=== PATIENT | female | born 1965 | race Caucasian/White ===

== ENCOUNTER 2019-04-02 07:32 | Outpatient (CLI) | payer OTHER, SELFPAY ==
--- NOTE | 2019-04-02 07:50 | ECHO_ITS ---
Patient Info Name: Genna Rodriguez Age: 53 years : 1965 Gender: Female Ht: 62 in Wt: 173 lbs BSA: 1.88 m2 HR: 65 bpm BP: 149 / 83 mmHg Heart Rhythm: Sinus Rhythm Technical Quality: Good Exam Date: 04/02/2019 8:10 AM Exam Location: [facility] Patient Status: Outpatient Admit Date: 04/02/2019 Staff Ordering Physician: Katherin Dempsey NP Wincher: Itzel Martin RDCS Attending Provider: Katherin Dempsey NP Referring Physician: Roselyn KILGORE; Exam Type: CA echo doppler color flow Study Info Indications R55 - Syncope and collapse Complete two-dimensional, color flow and Doppler transthoracic echocardiogram is performed. Summary 1. Left ventricular systolic function is normal, estimated at 60-65%. 2. Trivial jets of mitral tricuspid and pulmonic insufficiency. All appear to be within physiologic normal limits. Left Ventricle Left ventricular chamber dimension is normal. Left ventricular systolic function is normal, estimated at 60-65%. The left ventricular diastolic function is normal. Right Ventricle Right ventricular chamber dimension is normal. Left Atria Left atrial chamber dimension is normal. Right Atria Right atrial chamber dimension is normal. Aortic Valve The aortic valve is trileaflet. Pulmonic Valve The pulmonic valve is normal. There is trace pulmonic regurgitation. Mitral Valve The mitral valve has normal leaflets. There is trace mitral valve regurgitation. Tricuspid Valve The tricuspid valve leaflets are normal. There is trace tricuspid valve regurgitation. Pericardium/Pleural The pericardium appears normal. Aorta The aortic root size at the sinus of Valsalva is normal. Left Ventricular Outflow Tract Name Value Normal LVOT 2D LVOT Diameter 2.0 cm LVOT Doppler LVOT Peak Gradient 5 mmHg LVOT Mean Gradient 3 mmHg LVOT VTI 26 cm LVOT VTI/AV VTI Ratio 1.0 LVOT Stroke Volume 82 ml LVOT CO 5.3 l/min LVOT CI 2.8 l/min/m2 Pulmonic Valve Name Value Normal RVOT Doppler RVOT Peak Gradient 2 mmHg PV Doppler PV Peak Gradient 4 mmHg Mitral Valve Name Value Normal MV Doppler MV Decel [place] 303 cm/s2 MV PHT 64 ms MV Area (PHT) 3
== END 2019-04-02 07:33 | disposition home or self-care (01) ==
PROVIDERS: PCP Family Medicine; Visit Provider Nurse Practitioner Family
DX: R55 Syncope and collapse (principal)
CPT/HCPCS: 93306

== ENCOUNTER 2019-04-28 00:19 | Day surgery (SDC) | payer OTHER, SELFPAY ==
[2019-04-23 13:59] VITALS: BMI 30.2
[2019-04-28] MEDS: LACTATED RINGERS 1,000 ML 150 ML IV CONT (09:08)
--- NOTE | 2019-04-28 09:08 | WPDANESEPPF ---
Anes - Initial Pre Proc Eval Procedure: Operation Date: 04/28/19 09:45 Proposed Procedures p Screening Colonoscopy - Gilmar Forde MD Date/Time: 04/28/19 09:08 Surgeon: Gilmar Forde MD Pre Op Diagnosis: Neoplasm Screening Patient Data Age: 53 Gender: F Height: 5 ft 2 in Weight: 75 kg Allergies Allergy/AdvReac Type Severity Reaction Status Date / Time NKDA Allergy Mild Unknown Uncoded 04/28/19 08:59 Home Medications Medication Instructions Recorded Confirmed Type triamcinolone acetonide 0.5 % 1 applic TOPICAL BID PRN #15 gm 04/26/19 Rx topical cream Patient hx anesthesia problems: none Family hx anesthesia problems: none PMFSH Past Medical History Medical History Bunion Elevated BP without diagnosis of hypertension Encounter for screening for malignant neoplasm of colon Fibroid uterus Shingles (~2013) left face, no ocular involvement Urinary incontinence Uterine fibroid Vaginal delivery (vaginal after ) Surgical History Surgical History H/O section (~1996) History of tubal ligation (~1998) Hx of breast reduction, elective (~2004) S/P breast lumpectomy [place] teeth removed Family History Family History Sibling Diabetes mellitus Cervical cancer Mother Thyroid cancer Social History Social History Smoking status: Never smoker Alcohol intake: current Substance use: never Gender identity (if verbalized by the patient): Female Anes - Eval Final PreProcedure Day of Procedure 04/28/19 09:08 Patient weight: obese Heart: regular rate and rhythm Lungs: clear to auscultation Airway: Mallampati scale class II Neurological: alert and oriented Last oral intake: >/= 8 hours ASA classification: II Emergent: no Anesthetic plan: proceed Anesthesia type and monitoring: general GIVS and standard monitoring Informed Consent: The patient's anesthetic plan and its attendant risks and benefits were discussed with the patient/family/POA. Questions were solicited and answers provided to the satisfaction of the patient/family/POA.
[2019-04-28 09:16] VITALS: BP 139/90; PULSE 91; RESP 18; TEMP 36.9; O2SAT 97; BMI 31.5
--- NOTE | 2019-04-28 09:27 | PM.HPGS ---
History of Present Illness History of Present Illness Consent: Risks, benefits, and alternatives have been discussed and questions answered. Patient agrees to proceed with procedure. Chief complaint: Neoplasm Screening Narrative: Genna Rodriguez is a 53 year old female here for her first colonoscopy Review of Systems Constitutional: Constitutional: Denies headache(s) and Denies weakness Eyes: Eyes: Denies blurry vision ENT: Reports Normal hearing present, Denies headache(s) and Denies neck pain Cardiovascular: Cardiovascular: Denies chest pain and Denies dyspnea Respiratory: Respiratory: Denies dyspnea Gastrointestinal: Gastrointestinal: Reports no additional gastrointestinal complaints Genitourinary: Genitourinary: Denies dysuria Musculoskeletal: Musculoskeletal: Denies neck pain Integumentary/Breasts: Skin/Breast: Denies dry skin Neurologic: Reports Normal hearing present, Denies headache(s) and Denies weakness Psychiatric: Psychiatric: Denies anxiety Endocrine: Endocrine: Denies change in body appearance Hematologic/Lymphatic: Hematologic/Lymphatic: Denies easy bleeding Allergic/Immunologic: Allergic/Immunologic: Denies urticaria PMFSH Past Medical History Medical History Bunion Elevated BP without diagnosis of hypertension Encounter for screening for malignant neoplasm of colon Fibroid uterus Shingles (~2013) left face, no ocular involvement Urinary incontinence Uterine fibroid Vaginal delivery (vaginal after ) Surgical History Surgical History H/O section (~1996) History of tubal ligation (~1998) Hx of breast reduction, elective (~2004) S/P breast lumpectomy [place] teeth removed Family History Family History Sibling Diabetes mellitus Cervical cancer Mother Thyroid cancer Social History Social History Smoking status: Never smoker Alcohol intake: current Substance use: never Gender identity (if verbalized by the patient): Female Meds Home Medications and Allergies Home Medications Medication Instructions Recorded Confirmed Type triamcinolone acetonide 0.5 % 1 applic TOPICAL BID PRN #15 gm 04/26/19 Rx topical cream Allergies Allergy/AdvReac Type Severity Reaction Status Date / Time NKDA Allergy Mild Unknown Uncoded 04/28/19 08:59 Vital Signs Vital Signs - 24 hr 04/28/19 09:16 Temperature 98.4 F Pulse Rate 91 Respiratory Rate 18 Blood Pressure 139/90 Pulse Oximetry 97 Exam Const: General: comfortable and no acute distress HENMT: General nose exam: Normal nares present Eyes: General: appearance normal, both eyes and all related structures Neck: Neck: no JVD Resp: Auscultation: clear to auscultation bilaterally Cardio: Rate: regular rate Rhythm: regular rhythm GI: Inspection: non-distended GI Palp: Yes Soft to palpation Skin: General skin exam: normal color Neuro: General: gait normal Speech: normal speech Extrem: General: normal to inspection Psych: Mental Status: mental status grossly normal Assessment and Plan Assessment and plan (1) Colon cancer screening: Code(s): Z12.11 - Encounter for screening for malignant neoplasm of colon Status: Acute Assessment and Plan: will proceed with colonoscopy
[2019-04-28 09:47] VITALS: BP 127/84; PULSE 76; RESP 18; O2SAT 98
[2019-04-28 09:57] VITALS: BP 129/73; PULSE 86; RESP 18; O2SAT 98
[2019-04-28 10:07] VITALS: BP 137/92; PULSE 78; RESP 18; O2SAT 98
== END 2019-04-28 10:28 | disposition home or self-care (01) ==
PROVIDERS: PCP Family Medicine; Visit Provider Internal Medicine Gastroenterology
PROC: 0DJD8ZZ Inspection of Lower Intestinal Tract, Via Natural or Artificial Opening Endoscopic (ICD-10-PCS; CPT 45378; principal; 2019-04-28 09:45)
DX: Z12.11 Encounter for screening for malignant neoplasm of colon (principal); D12.0 Benign neoplasm of cecum; D12.2 Benign neoplasm of ascending colon; K57.30 Diverticulosis of large intestine without perforation or abscess without bleeding; K64.8 Other hemorrhoids; E66.9 Obesity, unspecified; Z68.31 Body mass index [BMI] 31.0-31.9, adult
CPT/HCPCS: 45385; 88305; J2704; J7120

== ENCOUNTER → 2020-05-01 17:08 | Outpatient (CLI) | payer OTHER, SELFPAY ==
--- NOTE | ~2020-05-01 | MM_ITS ---
EXAMINATION: MM screening marilia BI w [place]lin HISTORY: Screening TECHNIQUE: Craniocaudal and mediolateral oblique 3-D tomosynthesis images were obtained and synthetic 2-D images were generated. CAD analysis was submitted and interpreted. COMPARISON: Comparison to multiple prior studies sequentially, with oldest reviewed study dated 03/21. BREAST PARENCHYMAL COMPOSITION: There are scattered areas of fibroglandular density. FINDINGS: There is a focal asymmetry in the upper central aspect of the right breast, middle third. T his asymmetry contains new clustered calcifications which are indeterminate. Additional bilateral nehemias ast asymmetries are stable. IMPRESSION: 1. Focal right breast asymmetry, upper central right breast middle third, with associated indetermina te calcifications, new since prior study. 2. Additional mammographic views and possible breast ultrasound are recommended. BI-RADS Category 0: Incomplete: Needs additional imaging evaluation. Reviewed, dictated and finalized at location A. E TOOLSETTER IMPRESSION: 1. Focal right breast asymmetry, upper central right breast middle third, with associated indeterminate calcifications, new since prior study. 2. Additional mammographic views and possible breast ultrasound are recommended . BI-RADS Category 0: Incomplete: Needs additional imaging evaluation.
== END ==
PROVIDERS: Visit Provider Obstetrics & Gynecology
DX: Z12.31 Encounter for screening mammogram for malignant neoplasm of breast (principal); R92.8 Other abnormal and inconclusive findings on diagnostic imaging of breast
CPT/HCPCS: 77063; 77067

== ENCOUNTER 2020-07-19 08:16 | Outpatient (CLI) | payer OTHER, SELFPAY ==
--- NOTE | ~2020-07-19 | MMUS_ITS ---
EXAMINATION: MM diagnostic marilia RT w [place]lin, US breast RT limited HISTORY: Follow-up right breast asymmetry TECHNIQUE: Additional 3-D tomosynthesis images of the right breast were performed and synthetic 2-D i mages were generated. CAD analysis was submitted and interpreted. High resolution Limited right breas t ultrasound was performed. COMPARISON: Comparison to multiple prior studies sequentially, with oldest reviewed study dated 03/19. BREAST PARENCHYMAL COMPOSITION: Breast composed of scattered areas of fibroglandular density. FINDINGS: MAMMOGRAPHIC FINDINGS: There is an irregular shaped mass in the upper outer quadrant of the right breast, middle third. Ther e are associated indeterminate calcifications. This mass measures approximately 1 cm maximum dimensio n. ULTRASOUND: Limited right breast ultrasound: At 11:00, 4 cm from the nipple there is an irregular shaped hypoecho ic mass with posterior shadowing measuring 12 mm maximum dimension. This corresponds to the mass iden tified on mammography. No internal vascularity. There are additional small benign cysts of the right breast. There is a small cluster of cysts in the right breast at 9:00, 9 cm from the nipple measuring 7 mm maximum dimension. IMPRESSION: 1. Irregular shaped hypoechoic mass of the right breast at 11:00, 4 cm from the nipple measuring 12 m m maximum dimension. 2. Ultrasound-guided right breast biopsy recommended. BI-RADS category 5, highly suggestive of malignancy. Reviewed, dictated and finalized at location A. IMPRESSION: 1. Irregular shaped hypoechoic mass of the right breast at 11:00, 4 cm from the nipple measuring 12 mm maximum dimension. 2. Ultrasound-guided right breast biopsy recommended. BI-RADS category 5, highly suggestive of malignancy.
== END 2020-07-19 08:17 ==
PROVIDERS: PCP Nurse Practitioner Family; Visit Provider Obstetrics & Gynecology
DX: N60.01 Solitary cyst of right breast (principal)
CPT/HCPCS: 76642; 77061; 77065; G0279

== ENCOUNTER 2021-07-27 14:55 | Outpatient (CLI) | payer BC, OTHER, SELFPAY ==
--- NOTE | ~2021-07-27 | US_ITS ---
EXAMINATION: US pelvic complete w TV DATE: 07/27/2021 16:07 INDICATION: History of uterine fibroids. Breast cancer. Comparison:Ultrasound dated 03/19/2019 TECHNIQUE: Multiple transabdominal and endovaginal sonographic images of the pelvis performed. FINDINGS: The uterus measures 12.4 x 5.5 x 7.5 cm. The endometrial complex measures 2 mm. There is an anterior fibroid measuring 9.9 x 8.3 x 5.9 cm. There is a nabothian cyst measuring 9 mm. The right ovary measures 1.4 x 1.1 x 1 cm and the left ovary is not visualized. There is no free fluid in the pelvis. There are no abnormal masses seen on either side. IMPRESSION: 1. Enlarged uterus containing a large anterior fibroid measuring 9.9 x 8.3 x 5.9 cm. Reviewed, dictated and finalized at location A. IMPRESSION: 1. Enlarged uterus containing a large anterior fibroid measuring 9.9 x 8.3 x 5. 9 cm.
== END 2021-07-27 14:56 | disposition home or self-care (01) ==
LOC: ANHIMG 15:02
PROVIDERS: PCP Nurse Practitioner Family; Visit Provider Obstetrics & Gynecology
DX: Z86.018 Personal history of other benign neoplasm (principal); D25.9 Leiomyoma of uterus, unspecified
CPT/HCPCS: 76830; 76856

== ENCOUNTER 2021-10-26 10:10 | Outpatient (CLI) | payer BC, OTHER, SELFPAY | END 2021-10-26 10:11 | disposition home or self-care (01) | LOC: ANHSURGERY 10:16 | PROVIDERS: PCP Nurse Practitioner Family; Visit Provider Obstetrics & Gynecology | DX: D25.9 Leiomyoma of uterus, unspecified (principal) | CPT/HCPCS: 36415; 86850; 86900; 86901 ==

== ENCOUNTER 2021-10-31 12:32 | Inpatient (IN) | payer BC, OTHER, SELFPAY ==
[2021-10-23 09:46] VITALS: BMI 33.6
--- NOTE | 2021-10-23 09:54 | PC.NURSE ---
Report to the Outpatient Waiting Room, entrance under the green pavilion located off [facility], at time _0800_ on date 10/31/21. OR Time: _1000_. - You and your visitor will be asked to self-screen and do not enter if you have any COVID symptoms. - Only one visitor and NO children visitors are allowed at this time. - The patient visitor is requested to leave or wait in car when not with patient due to restrictions. - A mask is required within the hospital. Patients may have clear liquids (water, carbonated beverages, clear teas, apple juice) until 3 hours prior to surgery with a maximum of 20 ounces. - No food from midnight until time of surgery nothing to drink after 0700am - Infants may have breast milk until 4 hours before surgery, infant formula 6 hours prior to surgery. - Children will be allowed to drink immediately following surgery. If applicable, please bring a bottle or sippy cup to assist with drinking. Juice, water, soda, and popsicles are readily available. For infants on formula, please bring formula the day of surgery. Pacifiers are allowed. Take the following medications with a SIP of water the morning of surgery: __n/a Medications to discontinue per physician n/a Date to take last dose Please no make-up, nail czech, hairspray, perfume, deodorant, or body powder the day of surgery. No jewelry (including any body piercings) or valuables the day of surgery, leave them at home. Please take a shower or bath the night before, or the morning of, surgery with an antibacterial soap. Wear comfortable, loose fitting clothing. Children are encouraged to wear pajamas. - Jewelry must be removed prior to entering the operating room. Rings and piercings that are not removed may be cut off. - The hospital will not accept responsibility for valuables. - Please leave all valuables, including medications, at home the day of surgery. If you are going home after surgery, a licensed rental car ferry driver must drive you home. - NO public transportation without another adult. - We recommend that an adult stay with you for 24 hours following discharge. - We also recommend that you do not drive, make important decision, drink alcoholic beverages, or take any drugs that were not prescribed by your health care provider for at least 24 hours after your discharge time. For Pediatric surgeries, we recommend two adults accompany the child home (only one inside the building at this time). Follow any additional instructions given to you from your surgeon. If you or anyone in your household have experienced Covid symptoms in the past week, please notify your surgeon or the nurse liaison at the phone number below for possible testing. Telephone instructions given to __patient and asked if any additional questions and then verbalized understanding. Patient advised to call surgeon office or pre surgery nurse liaison [phone] if any additional questions.
--- NOTE | 2021-10-30 13:22 | PM.IMHP ---
H&P: HPI History of Present Illness Date/Time: 10/30/21 13:22 Chief Complaint: Pelvic pressure from fibroid Narrative: She is a , menopause less than 2 years ago, with a history of known fibroid uterus which was found on ultrasound in . She has pelvic pressure and urgency. The uterus has slightly increased from 2019 to 2021. She had a normal endometrial biopsy in 2019 and 2021. She was diagnosed with breast cancer in 2020, was on Anastrozole. She has bladder urgency and pressure. She denies any bleeding. She desires definitive treatment of the fibroid uterus due to the pressure and discomfort and lower abdominal swelling. Review of Systems Review of Systems: All systems reviewed & are unremarkable except as noted in HPI and below Constitutional: Constitutional: Reports no additional constitutional complaints Eyes: Eyes: Reports no additional eye complaints Cardiovascular: Cardiovascular: Reports no additional cardiovascular complaints Respiratory: Respiratory: Reports no additional respiratory complaints Gastrointestinal: Gastrointestinal: Reports no additional gastrointestinal complaints Genitourinary: Genitourinary: Reports as per HPI Integumentary/Breasts: Skin/Breast: Reports system reviewed and no additional complaints, except as docu Neurologic: Reports system reviewed and no additional complaints, except as documented Psychiatric: Psychiatric: Reports no additional psychiatric complaints Hematologic/Lymphatic: Hematologic/Lymphatic: Reports no additional hematologic/lymphatic complaints PMFSH Past Medical History Medical History Breast cancer Bunion Colon cancer screening Elevated BP without diagnosis of hypertension Encounter for screening for malignant neoplasm of colon Fibroid uterus Shingles (~2013) left face, no ocular involvement Urinary incontinence Uterine fibroid Vaginal delivery (vaginal after ) Surgical History Surgical History H/O section (~1996) History of tubal ligation (~1998) Hx of breast reduction, elective (~2004) S/P breast lumpectomy [place] teeth removed Family History Family History Sibling Diabetes mellitus Cervical cancer Mother Thyroid cancer Social History Social History Smoking status: Never smoker Alcohol intake: current Alcohol use details: occ Substance use: never Substance use type: does not use Living arrangements: with family Gender identity (if verbalized by the patient): Female Meds Home Medications and Allergies Home Medications Medication Instructions Recorded Confirmed Type anastrozole 1 mg tablet 1 mg PO DAILY 03/15/21 10/23/21 History calcium citrate 200 mg (950 mg) 200 mg PO DAILY 03/15/21 10/23/21 History tablet tolterodine 4 mg capsule,extended 4 mg PO DAILY #90 caps 07/18/21 10/23/21 Rx release 24 hr Allergies Allergy/AdvReac Type Severity Reaction Status Date / Time No Known Allergies Allergy Verified 10/01/21 11:58 Exam Const: General: comfortable and no acute distress Orientation/consciousness: oriented to person, oriented to place and oriented to time Eyes: General: appearance normal, both eyes and all related structures Neck: Neck: normal visual inspection Resp: Effort & Inspection: normal respiratory effort Auscultation: clear to auscultation bilaterally Cardio: Rate: regular rate Rhythm: regular rhythm GI: Inspection: normal to inspection GI Palp: No abdominal tenderness and Yes No hepatosplenomegaly present Other: uterus palpable approx 12 weeks : External Female Exam: normal external appearance Speculum Exam - Vagina: normal appearance of the vagina Speculum Exam - Cervix: normal appearance of the cervix Bimanual exam-
[2021-10-31] VITALS (10 sets, daily range): BP systolic 120–140; BP diastolic 73–100; PULSE 58–85; RESP 11–18; TEMP 36.5–37.2; O2SAT 94–100
[2021-10-31] MEDS: LACTATED RINGERS 1,000 ML 30 ML IV CONT ×2 (08:30→12:37)
[2021-10-31] MEDS: ACETAMINOPHEN 500 MG TABLET 1000 MG PO (08:34)
[2021-10-31] MEDS: KETOROLAC 15 MG/ML VIAL (*BKC) IV PUSH (08:35)
--- NOTE | 2021-10-31 09:36 | WPDHPUPDATE1 ---
History and Physical Update Update Date/Time: 10/31/21 09:36 History and Physical has been reviewed, including an updated exam of the patient. There are NO changes in the patient's condition. Risks, benefits, and alternatives have been discussed and questions answered. Patient agrees to proceed with procedure.
--- NOTE | 2021-10-31 09:50 | WPDANESEPPF ---
Anes - Initial Pre Proc Eval Procedure: Operation Date: 10/31/21 10:00 Proposed Procedures p Total Abdominal Hysterectomy with Bilateral Salpingo Oophorectomy - Saurav Rivers MD Date/Time: 10/31/21 09:50 Surgeon: Saurav Rivers MD Pre Op Diagnosis: fibroid uterus Patient Data Age: 56 Gender: F Height: 1.6 m Weight: 86.18 kg Allergies Allergy/AdvReac Type Severity Reaction Status Date / Time No Known Allergies Allergy Verified 10/01/21 11:58 Home Medications Medication Instructions Recorded Confirmed Type anastrozole 1 mg tablet 1 mg PO DAILY 03/15/21 10/23/21 History calcium citrate 200 mg (950 mg) 200 mg PO DAILY 03/15/21 10/23/21 History tablet tolterodine 4 mg capsule,extended 4 mg PO DAILY #90 caps 07/18/21 10/23/21 Rx release 24 hr Patient hx anesthesia problems: post op nausea/vomiting Family hx anesthesia problems: none Results Review: All pre-operative results and documents have been reviewed as part of the pre-operative evaluation. [facility] Past Medical History Medical History Breast cancer Bunion Colon cancer screening Elevated BP without diagnosis of hypertension Encounter for screening for malignant neoplasm of colon Fibroid uterus Shingles (~2013) left face, no ocular involvement Urinary incontinence Uterine fibroid Vaginal delivery (vaginal after ) Surgical History Surgical History H/O section (~1996) History of tubal ligation (~1998) Hx of breast reduction, elective (~2004) S/P breast lumpectomy [place] teeth removed Family History Family History Sibling Diabetes mellitus Cervical cancer Mother Thyroid cancer Social History Social History Smoking status: Never smoker Alcohol intake: current Alcohol use details: occ Substance use: never Substance use type: does not use Living arrangements: with family Gender identity (if verbalized by the patient): Female Anes - Eval Final PreProcedure Day of Procedure 10/31/21 09:50 Patient weight: obese Heart: regular rate and rhythm Lungs: clear to auscultation Airway: Mallampati scale class III Neurological: alert and oriented Last oral intake: >/= 8 hours ASA classification: III Emergent: no Anesthetic plan: proceed Anesthesia type and monitoring: general ETT and standard monitoring Results Review: All pre-operative results and documents have been reviewed as part of the pre-operative evaluation. Informed Consent: The patient's anesthetic plan and its attendant risks and benefits were discussed with the patient/family/POA. Questions were solicited and answers provided to the satisfaction of the patient/family/POA.
[2021-10-31] MEDS: SCOPOLAMINE 1.5 MG PATCH TRANSDERM (10:00)
[2021-10-31] MEDS: ceFAZolin 2 GM/D5W 50 ML 2 GM/50 ML BAG IVPB (10:06)
--- NOTE | 2021-10-31 12:39 | P.OPB_ITS ---
Procedure Note - Brief Procedure Note - Brief Date of procedure: 10/31/21 Pre-op diagnosis: fibroid uterus fibroid uterus Post-op diagnosis: Same Procedure performed: total abdominal hysterectomy and bilateral salpingo-oophorectomy Anesthesia: GETA Surgeon: Saurav Rivers MD Laborer Operator: kody Estimated blood loss (mL): 20 Drains: No Packing: No Pathology: Yes (uterus with cervix right and left fallopian tubes and ovaries) Complications: No immediate complications Condition: Stable Disposition: PACU Findings: large uterus fibroid, atrophic ovaries/tubes
[2021-10-31] MEDS: fentaNYL CITRATE INJ (*CRX) 100 MCG/2 ML VIAL 25 MCG IV PUSH ×4 (13:04→13:30)
[2021-10-31] MEDS: DEXTROSE 5%/0.45% SOD CHL 1,000 ML 125 ML IV CONT (14:32)
[2021-10-31] MEDS: KETOROLAC 30 MG/ML VIAL (*BKC) IV PUSH ×2 (14:32→21:09)
[2021-10-31] MEDS: ANASTROZOLE (*CHEMO) 1 MG TABLET PO (20:02)
[2021-10-31] MEDS: SENNA/DOCUSATE SODIUM TABLET 2 TAB PO (21:08)
--- NOTE | 2021-10-31 21:40 | W.PM.PROC2 ---
Procedure Note - Detailed Date of Procedure 10/31/21 Pre-op Diagnosis fibroid uterus Post-op Diagnosis Same Procedure Performed Total abdominal hysterectomy and bilateral salpingo-oophorectomy. Surgeon Saurav Rivers MD Quality Control Expert Michael Anesthesia General Indications Pelvic pressure and known fibroid uterus. Findings Enlarged uterus, 480 gm, atrophic appearing ovaries and fallopian tubes bilaterally. Description of Procedure After informed consent was obtained. She was taking OR and placed in supine position. General endotracheal anestheia was administered and she was prepped and draped in sterile fashion. Attention was turned to the abdomen. A Pfannestiehl skin incision was made along the prior Pfannestiehl scar with the scapel. The subcutaneous tissue was dissected with cautery. The fascia was incised in the midline and extended bilaterally with collazo scissors. The fascia was from rectus muscles superiorly and inferiorly bluntly and sharply. The peritoneum was entered bluntly. The pelvic organs were visualized. The Belfor sidewall refractor was placed. The intestines was packed out of pelvis and retractor. The right round ligament was grasped with machelle and suture ligated with 0 vicryl. The round ligament was cauterized and the anterior leaf of the broad ligament was dissected anteriorly. The vesicouterine peritoneum was dissected from the lower uterine segment, below uterine vessel. The posterior leaf of broad ligament was incised. The infundibulopelvic ligament on the right was cauterized with ligature. The uterine arteries were skeletonized. The ascending uterine vessels were cauterized. The bladder was further dissected to below the the cervix. The uterine arteries were cauterized with ligature. Attention was then turned to the left round ligament which was grasped with machelle and suture ligated with 0 vicryl. The round ligament was incised. The anterior leaf of the broad ligament was dissected anteriorly and the vesicouterine peritoneum was dissected from the lower uterus to below where the cervix was palpated. The posterior leaf of the broad ligament was incised. The left infundibulopelvic was ligated with ligasure. The uterine arteries were skeletonized. The uterine vessels were cauterized. The cardinal ligaments on both sides were ligated with ligature. The z clamp was placed enclosing the uterosacral ligaments on both sides and the cervix. The Gabriella scissors were used to cut the cervix from the vaginal tissue. The vaginal pedicles were secured with 0 vicryl. The cuff was closed with figure of eight sutures of o vicryl. Hemostasis was noted. The pelvis was irrigated. Hemostasis was noted. The packing was removed. The peritoneum was closed with running stitch of 3.0 vicryl. The muscle bellies were inspected and noted to be hemostatic. The fascia was closed in a running fashion with 0 vicryl. The subcutaneous tissue was irrigated. Hemostasis obtained with cautery. The subcutaneous tissue was approximated with 3.0 vicryl. Skin incision closed in a subcuticular fashion with 4.0 vicryl and dermabond. Patient tolerated procedure well. Sponge count correct. Estimated Blood Loss 20 Urine Output 100 Packing No Pathology Yes (uterus cervix right and left fallopian tube and ovary) Complications No immediate complications Condition Stable Disposition PACU [facility] Billing Surgery - Charge Forward: Surgery Billing
[2021-11-01] VITALS: BP 137/74; PULSE 80; RESP 16; TEMP 36.6
[2021-11-01 04:45] VITALS: BP 114/72; PULSE 80; RESP 16; TEMP 36.9
[2021-11-01] MEDS: IBUPROFEN 600 MG TABLET ×2 (04:48→10:45)
[2021-11-01 05:31] LABS: Basophils Percent Auto 0.2 % (0.2-1.2); Hematocrit 39.2 % (37.0-47.0); Hemoglobin 12.5 g/dL (12.0-15.0); Immature Granulocyte Absolute 0.05 K/mm3 (0.00-0.031); Immature Granulocyte Percent A 0.4 % (0-0.5); Lymphocytes Absolute Auto 1.31 K/mm3 (0.9-3.2); Lymphocytes Percent Auto 10.6 % (18.3-44.2); Mean Corpuscular HGB Conc 31.9 g/dl (32-36); Mean Corpuscular Hemoglobin 28.5 pg (26-34); Mean Corpuscular Volume 89.3 fl (80-100); Mean Platelet Volume 10.7 fl (7.4-10.4); Neutrophils Percent Auto 80.8 % (45.5-73.1); Platelet Count Result 260 k/mm3 (150-375); Red Blood Count 4.39 M/mm3 (4.2-5.4); White Blood Count 12.4 K/mm3 (4.5-10.0)
--- NOTE | 2021-11-01 07:38 | WPDANESPN ---
Anes - Prog Note Post-Op Date/Time: 11/01/21 07:38 Cardiovascular status: normal Respiratory status: normal Airway patency: baseline Mental status: baseline Post-Op hydration status: normal Vital Signs: Last Vital Signs Temp 36.9 C 11/01/21 04:45 Pulse 80 11/01/21 04:45 Resp 16 11/01/21 04:45 BP 114/72 11/01/21 04:45 Pulse Ox 97 10/31/21 16:30 O2 Del Method Room Air 10/31/21 16:30 O2 Flow Rate 8 10/31/21 13:10 Pain Score (VAS): 1 I/O: Intake & Output 10/31/21 10/31/21 11/01/21 15:59 23:59 07:59 Intake Total 9981 656 3843 Output Total 029 650 5541 Balance 1350 -475 100 Laboratory Tests 11/01/21 04:41 11/01/21 04:41 WBC 12.4 H RBC 4.39 Hgb 12.5 Hct 39.2 MCV 89.3 MCH 28.5 MCHC 31.9 L RDW 14.0 Plt Count 260 MPV 10.7 H Immature Gran % (Auto) 0.4 Neut % (Auto) 80.8 H Lymph % (Auto) 10.6 L Whitman % (Auto) 8.0 Eos % (Auto) 0.0 Baso % (Auto) 0.2 Lymph # (Auto) 1.31 Whitman # (Auto) 1.0 H Eos # (Auto) 0.0 Baso # (Auto) 0.0 Abs Immat Gran (auto) 0.05 H Absolute Neuts (auto) 10.0 H Absolute Nucleated RBC 0.0 Nucleated RBC % 0.0 Post-procedural complaints: none Patient Feedback: Patient satisfied with anesthetic care.
[2021-11-01 08:00] VITALS: BP 114/81; PULSE 84; RESP 18; TEMP 36.9; O2SAT 97
[2021-11-01] MEDS: TOLTERODINE TARTRATE LA 4 MG CAP.ER.24H PO (09:00)
[2021-11-01 18:01] VITALS: BP 108/63; PULSE 67; PULSE 84; RESP 16; RESP 18; TEMP 36.2; O2SAT 97; O2SAT 99
[2021-11-01 19:50] VITALS: BP 114/61; PULSE 87; RESP 18; TEMP 36.8
[2021-11-01] MEDS: IBUPROFEN 600 MG TABLET PO (19:51)
[2021-11-01] MEDS: SENNA/DOCUSATE SODIUM TABLET 2 TAB PO (22:03)
[2021-11-01] MEDS: ANASTROZOLE (*CHEMO) 1 MG TABLET PO (22:04)
[2021-11-02] MEDS: IBUPROFEN 600 MG TABLET PO (05:30)
[2021-11-02 07:55] VITALS: BP 127/75; PULSE 71; RESP 16; TEMP 36.8; O2SAT 96
[2021-11-02 08:00] VITALS: PULSE 71; RESP 16; O2SAT 96
--- NOTE | 2021-11-02 08:48 | PM.GYNPNOP ---
LAUNDRY EQUIPMENT OPERATOR - A/P Assessment and plan (1) Status post hysterectomy with oophorectomy: Code(s): Z90.710 - Acquired absence of both cervix and uterus; Z90.721 - Acquired absence of ovaries, unilateral Status: Acute Plan POD1 s/p AMY /BSO doing well. Routine post op care. Encourage ambulation. Postoperative Procedures: Procedures Operation Date: 10/31/21 10:00 Actual Procedure Side Surgeon p Total Abdominal Hysterectomy with Bilateral Salpingo Oophorectomy Bilateral Saurav Rivers MD Time Spent With Patient Time: Total time spent is greater than 50% in coordination of care (as documented) at patient's floor/unit and/or counseling patient: Time with patient: less than 15 minutes LAUNDRY EQUIPMENT OPERATOR- PN:Subj Post-Op Subjective Date/time seen: 11/01/21 08:10 Interval history: She denies chest pain or SOB, has sat up in chair, tolerated liquids, no emesis, adequate pain control. No leg pain. No flatus. Exam Const: General: comfortable and no acute distress Eyes: General: appearance normal, both eyes and all related structures Resp: Effort & Inspection: normal respiratory effort Auscultation: clear to auscultation bilaterally Cardio: Rate: regular rate Rhythm: regular rhythm GI: Other: +BS throughout, minimal tenderness, incision intact no drainage. Extrem: General: normal to inspection, no calf tenderness and no pedal edema LAUNDRY EQUIPMENT OPERATOR - PN: Obj Data Vital Signs Vital Signs: Vital Signs - 24 hr 11/01/21 18:01 11/01/21 18:01 11/01/21 19:50 Temperature 97.2 F L 98.2 F Pulse Rate 67 84 87 Respiratory Rate 16 18 18 Blood Pressure 108/63 114/61 Pulse Oximetry 99 97 Oxygen Delivery Room Air 11/02/21 07:55 Temperature 98.2 F Pulse Rate 71 Respiratory Rate 16 Blood Pressure 127/75 Pulse Oximetry 96 Oxygen Delivery Intake/Output Intake/Output: Intake & Output 10/30/21 10/31/21 11/01/21 11/02/21 23:59 23:59 23:59 23:59 Intake Total 1850 2080 Output Total 975 1800 Balance 875 280 Meds/Results Medications: Active Medications Generic Name Dose Route Start Last Admin Trade Name Freq PRN Reason Stop Dose Admin Anastrozole 1 mg 11/01/21 09:00 11/01/21 22:04 Anastrozole (*Chemo) 1 Mg Tablet PO 1 mg DAILY DONTAE Administration Ibuprofen 600 mg 11/01/21 18:09 11/02/21 05:30 Ibuprofen 600 Mg Tablet PO 600 mg Q6H PRN Administration Cramping Ondansetron HCl 4 mg 10/31/21 12:32 Ondansetron Inj 4 Mg/2 Ml Vial IV PUSH Q6H PRN Nausea Senna/Docusate Sodium 2 tab 10/31/21 21:00 11/01/21 22:03 Senna/Docusate Sodium Tablet PO 2 tab HS DONTAE Administration Simethicone 80 mg 10/31/21 12:32 Simethicone 80 Mg Tab.Chew PO Q2H PRN Gas Tolterodine Tartrate 4 mg 11/01/21 09:00 11/01/21 09:00 Tolterodine Tartrate La 4 Mg Cap.Er.24h PO 4 mg DAILY DONTAE Administration Labs CBC & Chem 7: 11/01/21 04:41
--- NOTE | 2021-11-02 09:03 | P.PNOB_ITS ---
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 Discharge home today. Discussed discharge precautions. Postoperative Procedures: Procedures Operation Date: 10/31/21 10:00 Actual Procedure Side Surgeon p Total Abdominal Hysterectomy with Bilateral Salpingo Oophorectomy Bilateral Saurav Rivers MD Time Spent With Patient Time: Total time spent is greater than 50% in coordination of care (as documented) at patient's floor/unit and/or counseling patient: Time with patient: less than 15 minutes ECCLESIASTICAL WORKER- PN:Subj Post-Op Subjective Date/time seen: 11/02/21 09:03 Interval history: She denies chest pain or SOB. She has been ambulating well, tolerating regular diet, positive flatus, no BM. No leg pain. No spotting. Exam Const: General: comfortable and no acute distress Resp: Effort & Inspection: normal respiratory effort GI: Inspection: normal to inspection and other (nondistended nontender incision intact no drainage or erythema or induratio) Extrem: General: normal to inspection and no calf tenderness ECCLESIASTICAL WORKER - PN: Obj Data Vital Signs Vital Signs: Vital Signs - 24 hr 11/01/21 18:01 11/01/21 18:01 11/01/21 19:50 Temperature 97.2 F L 98.2 F Pulse Rate 67 84 87 Respiratory Rate 16 18 18 Blood Pressure 108/63 114/61 Pulse Oximetry 99 97 Oxygen Delivery Room Air 11/02/21 07:55 Temperature 98.2 F Pulse Rate 71 Respiratory Rate 16 Blood Pressure 127/75 Pulse Oximetry 96 Oxygen Delivery Intake/Output Intake/Output: Intake & Output 10/30/21 10/31/21 11/01/21 11/02/21 23:59 23:59 23:59 23:59 Intake Total 1850 2080 Output Total 975 1800 Balance 875 280 Meds/Results Medications: Active Medications Generic Name Dose Route Start Last Admin Trade Name Freq PRN Reason Stop Dose Admin Anastrozole 1 mg 11/01/21 09:00 11/01/21 22:04 Anastrozole (*Chemo) 1 Mg Tablet PO 1 mg DAILY DONTAE Administration Ibuprofen 600 mg 11/01/21 18:09 11/02/21 05:30 Ibuprofen 600 Mg Tablet PO 600 mg Q6H PRN Administration Cramping Ondansetron HCl 4 mg 10/31/21 12:32 Ondansetron Inj 4 Mg/2 Ml Vial IV PUSH Q6H PRN Nausea Senna/Docusate Sodium 2 tab 10/31/21 21:00 11/01/21 22:03 Senna/Docusate Sodium Tablet PO 2 tab HS DONTAE Administration Simethicone 80 mg 10/31/21 12:32 Simethicone 80 Mg Tab.Chew PO Q2H PRN Gas Tolterodine Tartrate 4 mg 11/01/21 09:00 11/01/21 09:00 Tolterodine Tartrate La 4 Mg Cap.Er.24h PO 4 mg DAILY DONTAE Administration Labs CBC & Chem 7: 11/01/21 04:41
--- NOTE | 2021-11-02 09:05 | PM.DS ---
DS: Admitting Diagnosis Discharge Date 11/02/2021 Admitting Diagnosis Symptomatic fibroid uterus DS: Discharge Diagnosis Discharge Diagnosis Plan same Status post hysterectomy DS: Summary Hospital Course Reason for hospitalization: Planned abdominal hsterectomy Hospital Course: Patient admitted for total abdominal hysterectomy and BSO. She had an uncomplicated AMY/BSO. Post operatively she did well. The evening of POD 1 she was ambulating the halls, tolerating regular diet, and had adequate pain control with Ibuprofen. She was doing well morning of POD 2. Discharge precautions discussed. Discharge to home on POD2. Status at Discharge Functional status at discharge: independent ambulation Overall status at discharge: patient is progressing back to baseline Time Spent with Patient Time attestation: Total time spent providing and/or coordinating discharge services: Exam Const: General: comfortable and no acute distress Eyes: General: appearance normal, both eyes and all related structures Resp: Effort & Inspection: normal respiratory effort GI: Inspection: normal to inspection (incision healing well) Extrem: General: no calf tenderness DS: Data Data Completed and Pending Completed studies during hospitalization: Pending at discharge 10/31/21 11:59 Surgical [PTH] Routine Discharge Plan Discharge Attending physician on discharge: Saurav Rivers Consulting providers: Jeff Dhillon Discharging Clinician: Saurav Rivers Anticipated Discharge Date/Time: 11/02/21 09:10 Patient Disposition: Home, Self-Care Activity: may shower, no straining and pelvic rest Diet: regular Discharge Instructions: Your Scopalamine patch was applied on 10/31/21. Remove the Scopolamine patch that was placed behind your ear in 72 hours or less. Wash your hands after touching. Patient Instructions: Hysterectomy (DC) Stand Alone Forms: General Discharge Instructions Follow-up/Referrals: Saruav Rivers MD [Physician] - 2 Weeks (call for appointment) Discharge Medications: New hydrocodone-acetaminophen 5-325 mg tablet 1 tablet PO Q4H PRN (Reason: pain) Qty: 20 0RF Continued anastrozole 1 mg tablet 1 mg PO DAILY calcium citrate 200 mg (950 mg) tablet 200 mg PO DAILY tolterodine 4 mg capsule,extended release 24hr 4 mg PO DAILY Qty: 90 1RF Date of admission: 10/31/21 12:32 Primary Care Provider: Katherin Dempsey Admitting Provider: Saurav Rivers Attending physician on admission: Saurav Rivers Condition: Stable
== END 2021-11-02 10:35 | disposition home or self-care (01) | DRG 743 ==
LOC: ANHOB2 14:18
PROVIDERS: Admitting Provider Obstetrics & Gynecology; PCP Nurse Practitioner Family; Visit Provider Obstetrics & Gynecology
PROC: 0UT94ZZ Resection of Uterus, Percutaneous Endoscopic Approach (ICD-10-PCS; principal; 2021-10-31 10:00)
DX: D25.9 Leiomyoma of uterus, unspecified (principal); R39.15 Urgency of urination; Z85.3 Personal history of malignant neoplasm of breast
CPT/HCPCS: 36415; 85025; 88307; A9270; J0131; J0690; J1100; J1170; J1885; J2250; J2405; J2704; J2710; J3010; J7120

== ENCOUNTER 2022-02-15 08:51 | Outpatient (CLI) | payer BC, OTHER, SELFPAY ==
[2022-02-15 19:22] LABS: Alanine Aminotransferase 34 U/L (6-35); Albumin Level 4.4 g/dL (3.5-5.1); Alkaline Phosphatase 94 U/L (38-126); Anion Gap 4 mmol/L (8-16); Aspartate Amino Transferase 39 U/L (14-36); Bilirubin,Total 0.4 mg/dL (0.2-1.3); Blood Urea Nitrogen 10 mg/dL (7-17); Calcium 9.8 mg/dL (8.4-10.2); Carbon Dioxide 31 mmol/L (22-30); Chloride 103 mmol/L (98-107); Cholesterol 192 mg/dL (0-200); Estimated Glomerular Filt Rate > 60; Glucose 100 mg/dL (65-110); HDL Direct 47 mg/dL; Potassium 4.3 mmol/L (3.4-5.0); Sodium 138 mmol/L (137-145); Triglycerides 100 mg/dL (<150)
[2022-02-15 19:33] LABS: LDL Cholesterol Direct 98 mg/dL
[2022-02-15 19:39] LABS: Vitamin D 25 Hydroxy 37.6 ng/mL
== END 2022-02-15 08:52 | disposition home or self-care (01) ==
LOC: ANHGOSHLAB 08:52
PROVIDERS: PCP Nurse Practitioner Family; Visit Provider Nurse Practitioner Family
DX: Z00.00 Encounter for general adult medical examination without abnormal findings (principal); Z13.220 Encounter for screening for lipoid disorders; Z79.899 Other long term (current) drug therapy; E55.9 Vitamin D deficiency, unspecified
CPT/HCPCS: 36415; 80053; 80061; 82306; 84443

== ENCOUNTER 2022-11-26 07:59 | Outpatient (CLI) | payer BC, OTHER, SELFPAY ==
[2022-11-26 12:10] LABS: Basophils Absolute Auto 0.1 K/mm3 (0.0-0.1); Basophils Percent Auto 1.2 % (0.2-1.2); Eosinophils Absolute Auto 0.5 K/mm3 (0-0.3); Eosinophils Percent Auto 10.9 % (0-4.4); Hematocrit 45.6 % (37.0-47.0); Hemoglobin 14.5 g/dL (12.0-15.0); Immature Granulocyte Absolute 0.01 K/mm3 (0.00-0.031); Immature Granulocyte Percent A 0.2 % (0-0.5); Lymphocytes Percent Auto 30.1 % (18.3-44.2); Mean Corpuscular HGB Conc 31.8 g/dl (32-36); Mean Corpuscular Hemoglobin 29.3 pg (26-34); Mean Corpuscular Volume 92.1 fl (80-100); Mean Platelet Volume 10.7 fl (7.4-10.4); Monocytes Absolute Auto 0.4 K/mm3 (0.1-0.6); Monocytes Percent Auto 9.3 % (2.6-8.5); Neutrophils Absolute Auto 2.1 K/mm3 (1.3-6.7); Neutrophils Percent Auto 48.3 % (45.5-73.1); Platelet Count Result 292 k/mm3 (150-375); Red Blood Count 4.95 M/mm3 (4.2-5.4); Red Cell Distribution Width 13.5 % (11.5-14.5); White Blood Count 4.3 K/mm3 (4.5-10.0)
[2022-11-26 12:18] LABS: Alanine Aminotransferase 40 U/L (6-35); Albumin Level 4.5 g/dL (3.5-5.1); Alkaline Phosphatase 90 U/L (38-126); Anion Gap 6 mmol/L (8-16); Aspartate Amino Transferase 51 U/L (14-36); Bilirubin,Total 0.6 mg/dL (0.2-1.3); Blood Urea Nitrogen 13 mg/dL (7-17); Calcium 9.9 mg/dL (8.4-10.2); Carbon Dioxide 29 mmol/L (22-30); Chloride 103 mmol/L (98-107); Cholesterol 230 mg/dL (0-200); Estimated Glomerular Filt Rate > 60; Glucose 92 mg/dL (65-110); HDL Direct 53 mg/dL; Sodium 138 mmol/L (137-145); Triglycerides 143 mg/dL (<150)
[2022-11-26 12:29] LABS: LDL Cholesterol Direct 127 mg/dL
[2022-11-29 10:30] LABS: Vitamin D 1,25 (OH)2 Total 34 pg/mL (18-72); Vitamin D2 1,25 (OH)2 <8 pg/mL; Vitamin D3 1,25 (OH)2 34 pg/mL
== END 2022-11-26 08:00 | disposition home or self-care (01) ==
LOC: ANHGOSHLAB 08:01
PROVIDERS: PCP Family Medicine; Visit Provider Nurse Practitioner Family
DX: Z00.00 Encounter for general adult medical examination without abnormal findings (principal)
CPT/HCPCS: 36415; 80053; 80061; 82652; 84443; 85025

== ENCOUNTER 2022-11-27 13:50 | Outpatient (CLI) | payer BC, OTHER, SELFPAY ==
[2022-11-27 20:27] LABS: Hepatitis B Surface Antigen Negative (Negative)
[2022-11-27 20:34] LABS: HAV RESULT Negative (Negative); Hepatitis B Core IgM Result Negative (Negative)
[2022-11-27 23:23] LABS: Hepatitis C Virus Antibody Negative (Negative)
== END 2022-11-27 13:51 | disposition home or self-care (01) ==
LOC: ANHGOSHLAB 13:52
PROVIDERS: PCP Family Medicine; Visit Provider Nurse Practitioner Family
DX: R74.8 Abnormal levels of other serum enzymes (principal)
CPT/HCPCS: 36415; 80074

== ENCOUNTER 2022-12-10 08:54 | Outpatient (CLI) | payer BC, OTHER, SELFPAY | END 2022-12-10 08:55 | disposition home or self-care (01) | PROVIDERS: PCP Family Medicine; Visit Provider Orthopaedic Surgery | DX: M25.562 Pain in left knee (principal) | CPT/HCPCS: 73564 ==

== ENCOUNTER 2024-08-06 00:18 | Day surgery (SDC) | payer BC, OTHER, SELFPAY ==
[2024-07-27 11:40] VITALS: BMI 32.0
--- OUTSIDE RECORDS SUMMARY | 2024-08-06 00:21 | XMS_ITS | Referral Summary ---
Author Organization [facility] [address] Address [address] [place] [address] Care Team Providers Care Transplanter Name Role Phone Katherin Dempsey NP Unavailable [phone] Juliane Francois MD Unavailable Toyin Alicea PhD Unavailable [phone] Hailey Lindquist MD Unavailable [phone] Guerita Cantor MD Unavailable [phone] Katherin Dempsey NP Primary Care Provider Encounters Date Type Department Care Team Description 05/07/[address] [facility] Oncology [address] [place] [address] 8 [place] [address] Rena Dover, RN Malignant neoplasm of upper-inner quadrant of right breast in female, estrogen receptor positive (HCC) (Primary Dx) 05/07/[address] [facility] Oncology [address] [place] [address] 8 [place] [address] Rena Dover, RN 05/07/[address] [facility] Oncology [address] [place] [address] 8 [place] [address] Rena Dover, RN 05/07/2024 11:00 AM BLUEPRINT CUTTER Office Visit [facility] Oncology [address] [place] [address] 8 [place] [address] Hailey Lindquist MD remote computer terminal operator (current) use of aromatase inhibitors (Primary Dx); Malignant neoplasm of upper-inner quadrant of right breast in female, estrogen receptor positive (HCC) 05/07/2024 12:00 PM BLUEPRINT CUTTER Infusion [facility] - Infusion [address] [facility] Floor 5 [place] [address] remote computer terminal operator (current) use of aromatase inhibitors (Primary Dx); Malignant neoplasm of upper-inner quadrant of right breast in female, estrogen receptor positive (HCC) 05/07/2024 10:00 AM BLUEPRINT CUTTER Lab [facility] - Lab Collection [address] [facility] Floor 5 [place] [address] Malignant neoplasm of upper-inner quadrant of right breast in female, estrogen receptor positive (HCC); longterm (current) use of aromatase inhibitors 05/06/2024 Orders Only [facility] at [address] [address] Rena Dover RN Malignant neoplasm of upper-inner quadrant of right breast in female, estrogen receptor positive (HCC) (Primary Dx) 05/06/2024 Results Follow-Up [facility] Surgery [facility] Floor 8 [place] [id number] Lauryn Louise NP Screening Mammogram Bilateral W Jean from Last 3 Months Allergies No known active allergies Medications calcium citrate/vitamin D3 (CITRACAL + D ORAL)Indications:s upplement Take 1 tablet by mouth nightly Active tolterodine LA (DETROL LA) 4 mg 24 hr capsuleIndications :Bladder Hyperactivity Take 1 capsule (4 mg total) by mouth nightly 2 Active anastrozole (ARIMIDEX) 1 mg tabletIndications: Malignant neoplasm of upper-inner quadrant of right breast in female, estrogen receptor positive (HCC),Encounter for person encountering health services TAKE 1 TABLET BY MOUTH EVERY DAY NIGHTLY 30 tablet 11 5 Active Active Problems Problem Noted Date Diagnosed Date longterm (current) use of aromatase inhibitors 02/04/2023 Encounter for follow-up surveillance of breast c ancer 03/15/2021 Pulmonary nodules 02/15/2021 Encounter for person encountering health service s 10/24/2020 Malignant neoplasm of upper- inner quadrant of right breast in female, estrogen receptor positive 08/21/2020 Cancer Staging:Clinical stage from 08/03/2020:Stage IA(cT1c, cN0, cM0, G1, ER+, TN-, HER2-) - Signed by Juliane Francois MD on 01/23/2021 Pathologic stage from 08/31/2020:Stage IA(pT1c, pN0(sn), cM0, G2, ER+, TN-, HER2-) - Signed by Toyin Alicea, PhD on 09/20/2020 Abnormal mammogram of right breast 08/06/2020 Immunizations Immunization Administration Dates Next Due Pfizer SARS-CoV-2 Monovalent Vaccination (12+ Yrs) PURPLE 06/06/2020,05/12/2020 Social History Tobacco Use Types Packs/Day Years Used Date Smoking Tobacco: Never Passive Smoke Exposure: Never Smokeless Tobacco: Never Tobacco Cessation:Counseling Given: Not Answered Humiliation, Afraid, Rape, and Kick questionnair e Answer Date Recorded Within the last year, have y ou been afraid of your partner or ex-partner? No 09/21/2020 Within the last year, have y ou been humiliated or emotionally abused in other ways by your partner or ex-partner? No Within the last year, have y ou been kicked, hit, slapped, or otherwise physically hurt by your partner or ex-partner? No 09/21/2020 Within the last year, have y ou been raped or forced to have any kind of sexual activity by your partner or ex-partner? No 09/21/2020 Social Connection and Isolat ion Panel [NHANES] Answer Date Recorded In a typical week, how many times do you talk on the phone with family, friends, or neighbors? More than three times a week 09/21/2020 How often do you get togethe r with friends or relatives? Once a week 09/21/2020 How often do you attend chur or latter day services? More than 4 times per year 09/21/2020 Do you belong to any clubs o r organizations such as holiness groups, unions, fraternal or athletic groups, or school groups? Yes 09/21/2020 How often do you attend meet ings of the clubs or organizations you belong to? 1 to 4 times per year 09/21/2020 Are you , , di vorced, , never , or living with a partner? 09/21/2020 AUDIT-C Answer Date Recorded Q1: How often do you have a drink containing alc ohol? Never 07/02/2021 Average Number of Drinks Not on file 022 Q3: How often do you have si x or more drinks on one occasion? Never 07/02/2021 Overall Financial Resource Strain (CARDIA) Answe r Date Recorded How hard is it for you to pa y for the very basics like food, housing, medical care, and heating? Not hard at all 09/21/2020 [facility] [place] of Occupat ional Health - Occupational Stress Questionnaire Answer Date Recorded Do you feel stress - tense, restless, nervous, or anxious, or unable to sleep at night because your mind is troubled all the time - these days? To some extent 09/21/2020 Exercise Vital Sign Answer Date Recorde d On average, how many days pe r week do you engage in moderate to strenuous exercise (like a brisk walk)? 7 days 09/21/2020 On average, how many minutes do you engage in exercise at this level? 60 min 09/21/2020 Hunger Vital Sign Answer Date Recorded Within the past 12 months, y ou worried that your food would run out before you got the money to buy more. Never true 09/22/19 21 Within the past 12 months, t he food you bought just didn't last and you didn't have money to get more. Never true 09/21/2020 PRAPARE - Transportation Answer Date Re corded In the past 12 months, has l ack of transportation kept you from medical appointments or from getting medications? No 09/01 In the past 12 months, has l ack of transportation kept you from meetings, work, or from getting things needed for daily living? No 09/21/2020 Education Answer Date Recorded What is the highest level of school you have completed or the highest degree you have received? 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 file Not on file Not on f ile Last Filed Vital Signs Vital Sign Reading Time Taken Comments Blood Pressure 131/87 05/07/2024 10:13 AM BLUEPRINT CUTTER Pulse 103 05/07/2024 10:13 AM BLUEPRINT CUTTER Temperature 36.6 C (97.9 F) 05/07/2024 10:13 AM BLUEPRINT CUTTER Respiratory Rate 18 05/07/2024 10:13 AM BLUEPRINT CUTTER Oxygen Saturation 98% 05/07/2024 10:13 AM BLUEPRINT CUTTER Inhaled Oxygen Concentration - - Weight 76.2 kg (168 lb) 05/07/2024 10:13 AM BLUEPRINT CUTTER Height 160 cm (5' 3) 05/07/2024 11:17 AM BLUEPRINT CUTTER Body Mass Index 29.76 05/07/2024 10:13 AM BLUEPRINT CUTTER Plan of Treatment Not on file Medical Devices Implanted Type Area Behavioral Instructor Device Identifier Shelf Expiration Date Model / Serial / Lot [employer] [id number] Magseed 18ga 7cm Marker Breast Biopsy - [id number] Implanted:Qty: 1 on 08/23/2020 at [facility] [employer] [id number] 04/02/2024 [id number] / / [id number] Explanted Type Area Behavioral Instructor Device Identifier Shelf Expiration Date Model / Serial / Lot Bard Peripheral Vascular [id number] Powerport Clearvue Airguard 8fr 1 Lumen Lightweight Intermediate Latex Free - [id number] Implanted:Qty: 1 on 10/23/2020 by Guerita Cantor MD at [facility] Explanted:Qty: 1 on 07/02/2021 by Guerita Cantor MD at [facility] Left: Chest [employer] Peripheral V[employer] 11/09/2022 [id number] / / [id number] Procedures Procedure Name Priority Date/Time Associated Diagnosis Comments CRITICAL RESULT CALLBACK CHEMISTRY Routine 05/07/2024 9:50 AM BLUEPRINT CUTTER Malignant neoplasm of upper-inner quadrant of right breast in female, estrogen receptor positive (HCC) EGFR Routine 05/07/2024 9:50 AM BLUEPRINT CUTTER Malignant neoplasm of upper-inner quadrant of right breast in female, estrogen receptor positive (HCC) VITAMIN D 25 HYDROXY Routine 05/07/2024 9:50 AM BLUEPRINT CUTTER Malignant neoplasm of upper-inner quadrant of right breast in female, estrogen receptor positive (HCC) PHOSPHORUS Routine 05/07/2024 9:50 AM BLUEPRINT CUTTER Malignant neoplasm of upper-inner quadrant of right breast in female, estrogen receptor positive (HCC) BASIC METABOLIC PANEL Routine 05/07/2024 9:50 AM BLUEPRINT CUTTER Malignant neoplasm of upper-inner quadrant of right breast in female, estrogen receptor positive (HCC) SCREENING MAMMOGRAM BILATERAL W JEAN Schedule Routine, Read Routine (OP Routine) 05/05/2024 9:30 AM BLUEPRINT CUTTER Encounter for follow-up surveillance of breast cancer Malignant neoplasm of upper-outer quadrant of right breast in female, estrogen receptor positive (HCC) from Last 3 Months or Most Recently Relevant to Health Maintenance Results * eGFR (05/07/2024 9:50 AM BLUEPRINT CUTTER) eGFR >90 >=60 mL/min/1. 73 m2 Comment: Interpretive Data Reference Interval Normal >/= 90 mL/min/1.73m2 Mildly decreased* 60 - 89 mL/min/1.73m2 Mildly to moderately decreased 45 - 59 mL/min/1.73m2 Moderately to severely decreased 30 - 44 mL/min/1.73m2 Severely decreased 15 - 29 mL/min/1.73m2 Kidney Failure < 15 mL/min/1.73m2 *Relative to young adult level Estimated glomerular filtration rate is determined by the 2020 CKD-EPI equation recommended by the National Kidney Foundation (A Unifying Approach to GFR Estimation: Recommendations of the NKF-ASK Task Force on Reassessing the Inclusion of Race in Diagnosing Kidney Disease, JASN 2020). The CKD-EPI equation should not be used for patients with unstable renal function and has not been validated in children and those over 70. Current interpretive data was last reviewed 2021. Blood 05/07/2024 9:50 AM BLUEPRINT CUTTER 05/07/2024 9:53 AM BLUEPRINT CUTTER us Hailey Lindquist MD LAB BLOOD ORDERABLES Final Result [facility] [place] [address] * Critical Result Callback Chemistry (05/07/2024 9:50 AM BLUEPRINT CUTTER) Pathologist [facility] Date Notified [id number] Time Notified 1037 [facility] TestName Glucose [facility]AL ALEJANDRO Called/Read Back Rena [facility] Credentials RN [facility] Called By costa [facility] Blood 05/07/2024 9:50 AM BLUEPRINT CUTTER 05/07/2024 9:53 AM BLUEPRINT CUTTER us Hailey Lindquist MD LAB BLOOD ORDERABLES Final Result Performing Organization Address City/[facility]/ZIP Co de Phone Number [facility] [place] [address] * Vitamin D 25 hydroxy (05/07/2024 9:50 AM BLUEPRINT CUTTER) [facility] Vitamin D 25-OH 38 30 - 80 ng/mL Blood 05/07/2024 9:50 AM BLUEPRINT CUTTER 05/07/2024 9:53 AM BLUEPRINT CUTTER us Hailey Lindquist MD LAB BLOOD ORDERABLES Final Result [facility] [place] [address] * Phosphorus (05/07/2024 9:50 AM BLUEPRINT CUTTER) [facility] Phosphorus, pl 3.4 2.3 - 4.5 mg/dL Blood 05/07/2024 9:50 AM BLUEPRINT CUTTER 05/07/2024 9:53 AM BLUEPRINT CUTTER us Hailey Lindquist MD LAB BLOOD ORDERABLES Final Result [facility] Department [place] [address] * (ABNORMAL) Basic metabolic panel (05/07/2024 9:50 AM BLUEPRINT CUTTER) Sodium 143 135 - 145 mmol/L Potassium, pl 4.1 3.3 - 4.9 mmol/L [facility] Chloride 105 97 - 110 mmol/L [facility] CO2 28 22 - 32 mmol/L [facility] Anion gap 10 2 - 15 mmol/L [facility] BUN 14 6 - 25 mg/dL [facility] Creatinine 0.74 0.60 - 1.10 mg/dL [facility] Glucose 54(C) 70 - 199 mg/dL [facility] Comment: Glycolysis suspected; suggest sending a roberts top tube. Interpretive Data Fasting glucose >/= 126 mg/dl is diagnostic for diabetes. Fasting is defined as no caloric intake for at least 8 hours. Fasting glucose between 100 mg/dl to 125 mg/dl is diagnostic of prediabetes. In a patient with classic symptoms of hyperglycemia or hyperglycemic crisis, a random glucose >/= 200 mg/dl is diagnostic for diabetes. In the absence of unequivocal hyperglycemia, results should be confirmed by repeat testing. The classification and Diagnosis of Diabetes Diabetes Care 202; 46: S19-S40. Current interpretive data was last revised 2022. Calcium 10.1 8.5 - 10.3 mg/dL [facility] Blood 05/07/2024 9:50 AM BLUEPRINT CUTTER 05/07/2024 9:53 AM BLUEPRINT CUTTER us Hailey Lindquist MD LAB BLOOD ORDERABLES Final Result [facility] Department [place] [address] * Screening Mammogram Bilateral W Jean (05/05/2024 9:30 AM BLUEPRINT CUTTER) Anatomical Region Laterality Modality Breast Bilateral Mammography Narrative 05/05/2024 4:59 PM BLUEPRINT CUTTER Mammogram Technique: Bilateral Digital Breast Tomosynthesis, Bilateral C-view 2D Screening mammogram. Views obtained: bilateral craniocaudal and bilateral mediolateral oblique. Computer Aided Detection was performed. Mammogram Findings: The present examination has been compared to prior imaging studies performed at [facility] on 04/26/2022, 05/06/2023 and 11/07/2023. There are scattered areas of fibroglandular density. There are post breast conservation therapy changes in the right breast. There is no suspicious abnormality in either breast. Impression: There is no mammographic evidence of malignancy. Annual screening mammography is recommended. OVERALL FINAL ASSESSMENT: BI-RADS CATEGORY 2: Benign. Procedure Note Jeanette Bird MD - 05/05/2024 Mammogram Technique: Bilateral Digital Breast Tomosynthesis, Bilateral C-view 2D Screening mammogram. Views obtained: bilateral craniocaudal and bilateral mediolateral oblique. Computer Aided Detection was performed. Mammogram Findings: The present examination has been compared to prior imaging studies performed at [facility] on 04/26/2022, 05/06/2023 and 11/07/2023. There are scattered areas of fibroglandular density. There are post breast conservation therapy changes in the right breast. There is no suspicious abnormality in either breast. Impression: There is no mammographic evidence of malignancy. Annual screening mammography is recommended. OVERALL FINAL ASSESSMENT: BI-RADS CATEGORY 2: Benign. Lauryn Lousie NP IMG MAMMO PROCEDURES Final Result from Last 3 Months or Most Recently Relevant to Health Maintenance Insurance [employer] ACCESS CHOICE Member Subscriber Plan / Payer (Ef fective 2021-Present) Name:Genna Rodriguez Relation to Subscriber:Self Name:Genna Rodriguez Payer ID:[id number] (NAIC) Type:[employer] Address: [address] [employer] ACCESS CHOICE Member Subscriber Plan / Payer (Ef fective 2021-Present) Name:Genna Rodriguez Relation to Subscriber:Self Name:Genna Rodriguez Payer ID:[id number] ([facility]) Type:[employer] Address: [address] GENERIC COPAY ASSIST [employer] Member Subscriber Plan / Payer (Ef fective 2021-Present) Name:Genna Rodriguez Relation to Subscriber:Self Name:Genna Rodriguez Payer ID:[id number] (NAIC) Type:[facility] Address: [facility] [id number] Care Teams Transplanter Relationship Specialty Start Date End Date Katherin Dempsey NP PCP - General 09/30/20 Katherin Dempsey NP Nurse Practitioner Family Medicine 08/31/20 Juliane Francois MD Radiation Oncologist Radiation Oncology 09/21/20 Toyin Alicea, PhD Nurse Practitioner Radiation Oncology 09/21/20 Hailey Lindquist MD [address] DIV MEDICAL ONCOLOGY, [facility] [address] [place] [address] Medical Oncologist/Heel Edge Inker Machine Medical Oncology 09/21/20 Guerita Cantor MD [address] DIV MEDICAL ONCOLOGY, [facility] [address]A, [address], [address] [place] [address] Surgeon Surgical Oncology 09/21/20
--- OUTSIDE RECORDS SUMMARY | 2024-08-06 00:21 | XMS_ITS | Clinical Summary ---
Author Organization [facility] Address [address] [place] [address] Care Team Providers Care Machine Tool Electrician Name Role Phone Katherin Dempsey [facility] Primary Care Provider Source Comments [facility] Affiliates and Associated Physician Practices is amultiple site organization consisting of ambulatory clinics and hospital sitesin [place], [place], [place] and [place]. This disclosure is being madepursuant to the Care Everywhere program and may not contain all information available regarding this patient. Last updated 17.[facility] Social History Tobacco Use Types Packs/Day Years Used Date Smoking Tobacco: Never Assessed Comments Unknown Sex and Gender Information Value Date Recorded Sex Assigned at Not on file Legal Sex Female 6:28 AM NURSE STAFF Gender Identity Not on file Sexual Orientation Not on file Plan of Treatment Health Maintenance Due Date Last Done Comments COLOGUARD (AGES 45-75) - COL ON CA SCREENING 1965 COLON MONITORING 1965 COLONOSCOPY - COLON CA SCREENING 1965 CT COLONOGRAPHY - COLON CA SCREENING 1965 Colorectal Cancer Screening 1965 FIT - COLON CA SCREENING 1965 FLEX SIG - COLON CA SCREENING 1965 LIPID TESTING 1965 MAMMOGRAM 1965 HIV SCREENING 1980 HEPATITIS C SCREENING 09/24/1983 DTAP/TDAP/TD VACCINES (1 - Tdap) 1984 HEPATITIS B VACCINE (1 of 3 - 19+ 3-dose series) 1984 PNEUMOCOCCAL VACCINE 50+ (1 of 1 - PCV) 09/29/2015 ZOSTER VACCINE (1 of 2) 09/29/2015 COVID-19 VACCINE (1 - 2023-2 5 season) 2023 DEPRESSION SCREENING 03/03/2024 INFLUENZA VACCINE (Season Ended) 2024 HIB VACCINE Aged Out No longer eligi ble based on patient's age to complete this topic HPV VACCINE Aged Out No longer eligi ble based on patient's age to complete this topic MENINGOCOCCAL (Group B) VACC INE SHARED DECISION-MAKING Aged Out No longer eligibl e based on patient's age to complete this topic MENINGOCOCCAL GROUPS A/C/Y/W VACCINE Aged Out No longer eligible b ased on patient's age to complete this topic Insurance [facility] Care Teams Machine Tool Electrician Relationship Specialty Start Date End Date Katherin Dempsey APRN-JANET [address] [place] [address] PCP - General 11/02/21
--- OUTSIDE RECORDS SUMMARY | 2024-08-06 00:21 | XMS_ITS ---
Author Organization [facility] [address] Address [address] [place] [address] Care Team Providers Care Security Dispatcher Name Role Phone Katherin Dempsey NP Unavailable [phone] Juliane Francois MD Unavailable Toyin Alicea PhD Unavailable [phone] Hailey Lindquist MD Unavailable [phone] Guerita Cantor MD Unavailable [phone] Katherin Dempsey NP Primary Care Provider [phone] Active Problems Problem Noted Date Diagnosed Date senior care (current) use of aromatase inhibitors 02/04/2023 Encounter for follow-up surveillance of breast c ancer 03/15/2021 Pulmonary nodules 02/15/2021 Encounter for person encountering health service s 10/24/2020 Malignant neoplasm of upper- inner quadrant of right breast in female, estrogen receptor positive 08/21/2020 Cancer Staging:Clinical stage from 08/03/2020:Stage IA(cT1c, cN0, cM0, G1, ER+, AR-, HER2-) - Signed by Juliane Francois MD on 01/23/2021 Pathologic stage from 08/31/2020:Stage IA(pT1c, pN0(sn), cM0, G2, ER+, AR-, HER2-) - Signed by Toyin Alicea, PhD on 09/20/2020 Abnormal mammogram of right breast 08/06/2020 Current Treatment and Therapy Plans IV Maintenance Therapy Plan* Plan Start Date:04/25/2023 Plan Provider:Hailey Lindquist MD Linked Problems Malignant neoplasm of upper- inner quadrant of right breast in female, estrogen receptor positive (HCC) Treatment Medications No medications scheduled. Zoledronic Acid (ZOMETA) Infusion* Plan Start Date:04/25/2023 Plan Provider:Hailey Lindquist MD Linked Problems Malignant neoplasm of upper- inner quadrant of right breast in female, estrogen receptor positive (HCC)intermediate accountant (current) use of aromatase inhibitors Treatment Medications No medications scheduled. Past Treatment and Therapy Plans Oncology Chemotherapy Treatment Plan Name Start Date Discontinue Date Treatment Medications Discontinue Reason Plan Provider Cycles TC: (DOCEtaxe l / Cyclophos phamide) 21 Day Cycles - Breast 1 01/01/2021 cycloPHOSphamide IVPB in 250 mL (vial 200 mg/mL)([id number])DOCEta xel (TAXOTERE) IVPB in 250 mL (vial 20mg/mL) Therapy Complete Hailey Lindquist MD 4 of 4 cycles completed Radiation Treatments * Course C1 R BREAST 202002/01/2021 - 03/01/2021 Treatment Period Energy Fraction Dose Fractions Total Dose Plans Planned [facility]UIQ [facility] 02/26/2021 - 03/01/2021 250 4 / 1,000 R BREAST 02/01/2021 - 02/22/2021 266 16 / 4,256 Reference Points Delivered BST DPV 02/26/2021 - 03/01/2021 1,000 ALDANA DPV 02/01/2021 - 02/22/2021 4,256 Lifetime Dose Tracking * Chemical Lifetime Dose Automatic Entry Manual Entr y Fluoro Time 3.007 minutes 3.007 minutes 0 minutes Air kerma at the reference point (Ka,r) 23.79 mGy 2 3.79 mGy 0 mGy DLP 2,151 mGycm 2,151 mGycm 0 mGycm
--- OUTSIDE RECORDS SUMMARY | 2024-08-06 00:21 | XMS_ITS | Encounter Summary ---
Author Organization [facility] Healthcare Address [address] [place] [address] Care Team Providers Care Cash Applications Coordinator Name Role Phone Katherin Dempsey NP Unavailable [phone] Juliane Francois MD Unavailable Toyin Alicea PhD Unavailable Hailey Lindquist MD Unavailable [phone] Guerita Cantor MD Unavailable [phone] Katherin Dempsey NP Primary Care Provider [phone] Reason for Visit * Reason Comments OTV Encounter Details Date Type Department Care Team (Late st Contact Info) Description 03/01/2021 OTV [facility] Advanced Medicine Radiation Oncology [address] [facility] Advanced Medicine [facility] [place] [address] Jose Leggett MD PhD [address] [facility] [address] [place] [address] Social History Tobacco Use Types Packs/Day Years Used Date Smoking Tobacco: Never Smokeless Tobacco: Never Humiliation, Afraid, Rape, and Kick questionnair e [...] How often do you attend chur or denominational services? More than 4 times per year 09/21/2020 Do you belong to any clubs o r organizations such as quaker groups, unions, fraternal or athletic groups, or school groups? Yes 09/21/2020 How often do you attend meet ings of the clubs or organizations you belong to? 1 to 4 times per year 09/21/2020 Are you , , di vorced, , never , or living with a partner? 09/21/2020 AUDIT-C Answer Date Recorded Q1: How often do you have a drink containing alc ohol? Monthly or less 10/17/2020 Q2: How many drinks containi ng alcohol do you have on a typical day when you are drinking? 1 or 2 10/17/2020 Q3: How often do you have si x or more drinks on one occasion? Never 10/17/2020 Overall Financial Resource Strain (CARDIA) Answe r Date Recorded How hard is it for you to pa y for the very basics like food, housing, medical care, and heating? 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 Not on file Not on file Not on f ile documented as of this encounter Last Filed Vital Signs Vital Sign Reading Time Taken Comments Blood Pressure - - Pulse - - Temperature - - Respiratory Rate - - Oxygen Saturation - - Inhaled Oxygen Concentration - - Weight 80.7 kg (178 lb) 03/01/2021 9:15 AM FASHION DESIGNER Height - - Body Mass Index 31.53 02/16/2021 8:59 AM FASHION DESIGNER documented in this encounter Progress Notes * Theresa Asencio MD - 03/01/2021 9:15 AM CST Patient Name: Genna Rodriguez Date of : 1965 Treating Physician:Juliane Francois MD Date of Service: 03/01/2021 RADIATION ONCOLOGY ON TREATMENT VISIT NOTE Diagnosis: Cancer Staging Malignant neoplasm of upper-inner quadrant of right breast in female, estrogen receptor positive (CMS/HCC) (HCC) Staging form: Breast, AJCC 8th Edition - Clinical stage from 08/03/2020: Stage IA (cT1c, cN0, cM0, G1, ER+, [place]-, HER2-) - Signed by Juliane Francois MD on 01/23/2021 - Pathologic stage from 08/31/2020: Stage IA (pT1c, pN0(sn), cM0, G2, ER+, MT-, HER2-) - Signed by Toyin Alicea, PhD on 09/20/2020 1. Diagnosed age 54 postmenopausal RUIQ [id number] gr 2 IDC +/-/- 2. SURGERY: BCS - margins associated gr 3 multifocal DCIS 3. SYSTEMIC: Oncotype 33 adjuvant TC x 4 then AI 4: RADIATION: Right breast Prone 42.56 Gy/16 fx then 10 Gy boost TREATMENT: Radiation Treatments Active Plans R BREAST Most recent treatment: Dose planned: 266 cGy (fraction 16 on 02/22/2021) Total: Dose planned: 4,256 cGy Elapsed Days: 21 RUIQ BRS BST Most recent treatment: Dose planned: 250 cGy (fraction 3 on 02/28/2021) Total: Dose planned: 1,000 cGy Elapsed Days: 27 Reference Points BST DPV Most recent treatment: Dose given: 250 cGy (on 02/28/2021) Total: Dose given: 750 cGy Elapsed Days: 27 ALDANA DPV Most recent treatment: Dose given: 266 cGy (on 02/22/2021) Total: Dose given: 4,256 cGy Elapsed Days: 21 Radiation Treatments No historical radiation treatments to show. SUBJECTIVE: Fraction 20 of 20 completed today; doing well. Reports mild tenderness in RUQ overlying axillary incision scar (ocassional and non-disruptive), otherwise no complaints. Breast or Chest Pruritis: none Vanicream: [x] Topical Corticosteroid: [x] [place] Starch: [x] Aquaphor: [] Silvadene: [] Dysphagia:0 - None Fatigue: 0 - None/baseline OBJECTIVE: Wt 80.7 kg (178 lb) BMI 31.53 kg/m?? Pain Score and Location 03/01/21 0915 PainSc: 0-No pain Zubrod 0 Well-appearing 55 yo woman, NAD; pleasant and conversant Right breast and axilla with faint erythema, no desquamation Skin Reaction: Hyperpigmentation: absent Breast or Chest Wall:1 - Faint erythema or dry desquamation Axilla:1 - Faint erythema or dry desquamation Inframammary Sulcus: 0 - None ASSESSMENT: - Micha Leggett MD, PhD saw Genna Deanne Rodriguez for - OTV - Chart Check [x] Tolerating Radiation Therapy PLAN:Pain Intervention: No intervention [x] Completion of Radiation Therapy today [x] Continue Skin Care as directed -- Follow-up arranged with Toyin Diana on 03/15/2021 Theresa Asencio MD Radiation Oncology, PGY-2 [facility] ION DESIGNER ION DESIGNER documented in this encounter Plan of Treatment Not on file documented as of this encounter Visit Diagnoses Not on filedocumented in this encounter Care Teams Cash Applications Coordinator Relationship Specialty Start Date End Date Katherin Dempsey NP PCP - General 09/30/20 Katherin Dempsey NP Nurse Practitioner Family Medicine 08/31/20 Juliane Francois MD Radiation Oncologist Radiation Oncology 09/21/20 Toyin Alicea, PhD Nurse Practitioner Radiation Oncology 09/21/20 Hailey Lindquist MD [address] DIV IM MEDICAL ONCOLOGY, [address] [address] [place] [address] Medical Oncologist/Import Coordination And Production Head Medical Oncology 09/21/20 Guerita Cantor MD [address] DIV IM MEDICAL ONCOLOGY, [address] [place] [address] Surgeon Surgical Oncology 09/21/20 documented as of this encounter
--- OUTSIDE RECORDS SUMMARY | 2024-08-06 00:21 | XMS_ITS | Clinical Summary ---
Author Organization [facility] [address] Address [address] [place] [address] Care Team Providers Care Pediatric Assistant Name Role Phone Katherin Dempsey NP Unavailable [phone] Juliane Francois MD Unavailable Toyin Alicea PhD Unavailable [phone] Hailey Lindquist MD Unavailable [phone] Guerita Cantor MD Unavailable [phone] Katherin Dempsey NP Primary Care Provider [phone] Allergies No known active allergies Medications calcium [...] Active Problems Problem Noted Date Diagnosed Date meterman (current) use of aromatase inhibitors 02/04/2023 Encounter for follow-up surveillance of breast c ancer 03/15/2021 Pulmonary nodules 02/15/2021 Encounter for person encountering health service s 10/24/2020 Malignant neoplasm of upper- inner quadrant of right breast in female, estrogen receptor positive 08/21/2020 Cancer Staging:Clinical stage from 08/03/2020:Stage IA(cT1c, cN0, cM0, G1, ER+, [place]-, HER2-) - Signed by Juliane Francois MD on 01/23/2021 Pathologic stage from 08/31/2020:Stage IA(pT1c, pN0(sn), cM0, G2, ER+, [place]-, HER2-) - Signed by Toyin Alicea, PhD on 09/20/2020 Abnormal mammogram of right breast 08/06/2020 Encounters Date Type Department Care Team Description 05/07/2024 12:00 PM CRITICAL CARE PHYSICIAN ASSISTANT Infusion [facility] - Infusion [address] [place] [address] Floor [address] [place] [address] meterman (current) use of aromatase inhibitors (Primary Dx); Malignant neoplasm of upper-inner quadrant of right breast in female, estrogen receptor positive (HCC) 05/07/2024 11:00 AM CRITICAL CARE PHYSICIAN ASSISTANT Office Visit [facility] Oncology [address] [place] [phone] Hailey Lindquist MD [facility] (current) use of aromatase inhibitors (Primary Dx); Malignant neoplasm of upper-inner quadrant of right breast in female, estrogen receptor positive (HCC) 05/07/2024 10:00 AM CRITICAL CARE PHYSICIAN ASSISTANT Lab [facility] - Lab Collection [address] [place] [address] [address] [place] [address] Malignant neoplasm of upper-inner quadrant of right breast in female, estrogen receptor positive (HCC); meterman (current) use of aromatase inhibitors 05/07/2024 Orders Only [facility] Oncology [address] [place] [address] [address] [place] [address] Rena Dover, RN Malignant neoplasm of upper-inner quadrant of right breast in female, estrogen receptor positive (HCC) (Primary Dx) 05/07/2024 Orders Only [facility] Oncology [address] [place] [address] 8 [place] [address] Rena Dover, RN 05/07/2024 Orders Only [facility] Oncology [address] [place] [address] 8 [place] [address] Rena Dover RN 05/06/2024 Orders Only [facility] [address] [facility] [place] [phone] Rena Dover, RN Malignant neoplasm of upper-inner quadrant of right breast in female, estrogen receptor positive (HCC) (Primary Dx) 05/06/2024 Results Follow-Up [facility] Surgery [address] [facility] [address] [place] [address] Lauryn Louise NP Screening Mammogram Bilateral W Jean from Last 3 Months Immunizations Immunization Administration Dates Next Due Pfizer SARS-CoV-2 Monovalent Vaccination (12+ Yrs) PURPLE 06/06/2020,05/12/2020 Surgical History Surgery Date Site/Laterality Comments REDUCTION MAMMAPLASTY 03/03/2004 - 03/02/2005 BUNIONECTOMY Bilateral SECTION 03/03/1996 - 03/02/1997 BREAST BIOPSY 08/03/2020 Right IDC COLONOSCOPY 03/03/2019 - 03/02/2020 MASTECTOMY, PARTIAL 08/31/2020 - 09/30/2020 Right TUBAL LIGATION PORTACATH PLACEMENT HYSTERECTOMY 10-31-2021 Medical History Medical History Date Comments Generalized headaches PONV (postoperative nausea and vomiting) Breast cancer (HCC) Breast cancer (HCC) last chemo 03/23, last radiation 02/20 Family History Medical History Relation Name Comments Heart disease Father Jean Memory loss Father Jean Prostate cancer Father Jean Cancer Mother Veronica Thyroid cancer Mother Veronica Cancer Sister 1 Eva Diabetes Sister 2 Chelly Anesthesia problems Neg Hx Relation Name Status Comments Father Jean Mother Veronica Sister 1 Eva Sister 2 Chelly Social History Tobacco Use Types Packs/Day Years [...] How often do you attend chur or nondenominational services? More than 4 times per year 09/21/2020 Do you belong to any clubs o r organizations such as episcopal groups, unions, fraternal or athletic groups, or [...] and heating? 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 Not on file Not on f ile Obstetrics History Last Filed Vital Signs Vital Sign Reading Time Taken Comments Blood Pressure 131/87 05/07/2024 10:13 AM CRITICAL CARE PHYSICIAN ASSISTANT Pulse 103 05/07/2024 10:13 AM CRITICAL CARE PHYSICIAN ASSISTANT Temperature 36.6 C (97.9 F) 05/07/2024 10:13 AM CRITICAL CARE PHYSICIAN ASSISTANT Respiratory Rate 18 05/07/2024 10:13 AM CRITICAL CARE PHYSICIAN ASSISTANT Oxygen Saturation 98% 05/07/2024 10:13 AM CRITICAL CARE PHYSICIAN ASSISTANT Inhaled Oxygen Concentration - - Weight 76.2 kg (168 lb) 05/07/2024 10:13 AM CRITICAL CARE PHYSICIAN ASSISTANT Height 160 cm (5' 3) 05/07/2024 11:17 AM CRITICAL CARE PHYSICIAN ASSISTANT Body Mass Index 29.76 05/07/2024 10:13 AM CRITICAL CARE PHYSICIAN ASSISTANT Plan of Treatment Health Maintenance Due Date Last Done Comments Colon Cancer Screening-Colonoscopy 1965 Depression Screening 1965 Hepatitis C Screening 1965 DTaP/Tdap/Td Vaccine (1 - Tdap) 1976 Hepatitis B Screening 09/29/1983 Regular Well Visit/Exam 18-64 09/29/1983 Pneumococcal vaccine <65 (1 of 2 - PCV) 1984 Zoster Vaccine (1 of 2) 1984 Covid-19 Vaccine (3 - Pfizer risk series) 07/04/2020 06/06/2020, 05/12/2020 Influenza Vaccine (Season Ended) 2024 Breast Cancer Screening-Mammogram 05/05/2025 05/05/2024, 05/06/2023, 04/26/2022, Additional history exists Medical Devices Implanted Type Area Block Mason Device Identifier Shelf Expiration Date Model / Serial / Lot [employer] [id number] Magseed 18ga 7cm Marker Breast Biopsy - [id number] Implanted:Qty: 1 on 08/23/[address] [facility] [id number] [id number] 04/02/2024 [id number] / / [id number] Explanted Type Area Block Mason Device Identifier Shelf Expiration Date Model / Serial / Lot Bard Peripheral Vascular [id number] Powerport Clearvue Airguard 8fr 1 Lumen Lightweight Intermediate Latex Free - [id number] Implanted:Qty: 1 on 10/23/2020 by Guerita Cantor MD at [facility] Explanted:Qty: 1 on 07/02/2021 by Guerita Cantor MD at [facility] Left: Chest [employer] 11/09/2022 [id number] / / [id number] Procedures Procedure Name Priority Date/Time Associated Diagnosis Comments CRITICAL RESULT CALLBACK CHEMISTRY Routine 05/07/2024 9:50 AM CRITICAL CARE PHYSICIAN ASSISTANT Malignant neoplasm of upper-inner quadrant of right breast in female, estrogen receptor positive (HCC) EGFR Routine 05/07/2024 9:50 AM CRITICAL CARE PHYSICIAN ASSISTANT Malignant neoplasm of upper-inner quadrant of right breast in female, estrogen receptor positive (HCC) VITAMIN D 25 HYDROXY Routine 05/07/2024 9:50 AM CRITICAL CARE PHYSICIAN ASSISTANT Malignant neoplasm of upper-inner quadrant of right breast in female, estrogen receptor positive (HCC) PHOSPHORUS Routine 05/07/2024 9:50 AM CRITICAL CARE PHYSICIAN ASSISTANT Malignant neoplasm of upper-inner quadrant of right breast in female, estrogen receptor positive (HCC) BASIC METABOLIC PANEL Routine 05/07/2024 9:50 AM CRITICAL CARE PHYSICIAN ASSISTANT Malignant neoplasm of upper-inner quadrant of right breast in female, estrogen receptor positive (HCC) SCREENING MAMMOGRAM BILATERAL W JEAN Schedule Routine, Read Routine (OP Routine) 05/05/2024 9:30 AM CRITICAL CARE PHYSICIAN ASSISTANT Encounter for follow-up surveillance of breast cancer Malignant neoplasm of upper-outer quadrant of right breast in female, estrogen receptor positive (HCC) from Last 3 Months or Most Recently Relevant to Health Maintenance Results * eGFR (05/07/2024 9:50 AM CRITICAL CARE PHYSICIAN ASSISTANT) eGFR >90 >=60 mL/min/1. 73 m2 Comment: [...] last reviewed 2021. Blood 05/07/2024 9:50 AM CRITICAL CARE PHYSICIAN ASSISTANT 05/07/2024 9:53 AM CRITICAL CARE PHYSICIAN ASSISTANT us Hailey Lindquist MD LAB BLOOD ORDERABLES Final Result VIMAL CHAVEZ [facility] [place] [address] * Critical Result Callback Chemistry (05/07/2024 9:50 AM CRITICAL CARE PHYSICIAN ASSISTANT) Date Notified [id number] Time Notified 1037 VIMAL CHAVEZ TestName Glucose [facility] Called/Read Back Rena [facility] Credentials RN VIMAL [facility] Called By costa [facility] Blood 05/07/2024 9:50 AM CRITICAL CARE PHYSICIAN ASSISTANT 05/07/2024 9:53 AM CRITICAL CARE PHYSICIAN ASSISTANT Hailey Lindquist MD LAB BLOOD ORDERABLES Final Result Performing Organization Address City/[facility]/ZIP Co de Phone Number VIMAL [facility] [place] [address] * Vitamin D 25 hydroxy (05/07/2024 9:50 AM CRITICAL CARE PHYSICIAN ASSISTANT) [facility] Vitamin D 25-OH 38 30 - 80 ng/mL Blood 05/07/2024 9:50 AM CRITICAL CARE PHYSICIAN ASSISTANT 05/07/2024 9:53 AM CRITICAL CARE PHYSICIAN ASSISTANT Hailey Lindquist MD LAB BLOOD ORDERABLES Final Result Performing Organization Address [facility] Co de Phone Number [facility] [place] [address] * Phosphorus (05/07/2024 9:50 AM CRITICAL CARE PHYSICIAN ASSISTANT) [facility] Phosphorus, pl 3.4 2.3 - 4.5 mg/dL Blood 05/07/2024 9:50 AM CRITICAL CARE PHYSICIAN ASSISTANT 05/07/2024 9:53 AM CRITICAL CARE PHYSICIAN ASSISTANT Hailey Lindquist MD LAB BLOOD ORDERABLES Final Result Performing Organization Address City/[facility]/ZIP [place] [address] * (ABNORMAL) Basic metabolic panel (05/07/2024 9:50 AM CRITICAL CARE PHYSICIAN ASSISTANT) [facility] Sodium 143 135 - 145 mmol/L Potassium, pl 4.1 3.3 - 4.9 mmol/L [facility] Chloride 105 97 - 110 mmol/L [facility] CO2 28 22 - 32 mmol/L [facility] Anion gap 10 2 - 15 mmol/L [facility] BUN 14 6 - 25 mg/dL [facility] Creatinine 0.74 0.60 - 1.10 mg/dL [facility] Glucose 54(C) 70 - 199 mg/dL [facility] Comment: Glycolysis suspected; suggest sending a roberst top tube. Interpretive Data Fasting glucose >/= [...] classification and Diagnosis of Diabetes Diabetes Care 2021; 46: S19-S40. Current interpretive data was last revised 2022. Calcium 10.1 8.5 - 10.3 mg/dL [facility] Blood 05/07/2024 9:50 AM CRITICAL CARE PHYSICIAN ASSISTANT 05/07/2024 9:53 AM CRITICAL CARE PHYSICIAN ASSISTANT us Hailey Lindquist MD LAB BLOOD ORDERABLES Final Result [facility] Department [place] [address] * Screening Mammogram Bilateral W Jean (05/05/2024 9:30 AM CRITICAL CARE PHYSICIAN ASSISTANT) Anatomical Region Laterality Modality Breast Bilateral Mammography Narrative 05/05/2024 4:59 PM CRITICAL CARE PHYSICIAN ASSISTANT Mammogram Technique: Bilateral Digital Breast Tomosynthesis, Bilateral C-view 2D Screening mammogram. Views obtained: bilateral craniocaudal and bilateral mediolateral oblique. Computer Aided Detection was performed. Mammogram Findings: The present examination has been compared to prior imaging studies performed at [facility] on 04/26/2022, 05/06/2023 and 11/07/2023. There are [...] compared to prior imaging studies performed at [facility] on 04/26/2022, 05/06/2023 and 11/07/2023. There are scattered areas of fibroglandular density. There are post breast conservation therapy changes in the right breast. There is no suspicious abnormality in either breast. Impression: There is no mammographic evidence of malignancy. Annual screening mammography is recommended. OVERALL FINAL ASSESSMENT: BI-RADS CATEGORY 2: Benign. Lauryn Louise NP IMG MAMMO PROCEDURES Final Result from Last 3 Months or Most Recently Relevant to Health Maintenance Insurance [facility] ACCESS CHOICE Member Subscriber Plan / Payer (Ef fective 2021-Present) Name:Genna Rodriguez Relation to Subscriber:Self Name:Genna Rodriguez Payer ID:[id number] (NAIC) Type:[facility] Address: [address] [place] [id number] [facility] HMO/PPO Address: [phone] [place] [phone] ANTHEM ACCESS CHOICE Member Subscriber Plan / Payer (Ef fective 2021-Present) Name:Genna Rodriguez Relation to Subscriber:Self Name:Genna Rodriguez Payer ID:[id number] (NAIC) Type:[facility] Address: [address] [facility] HMO/PPO Address: [phone] [place] [phone] GENERIC COPAY ASSIST ANTH [place] [address] [place] [address] [facility] HMO/PPO Address: [facility] [address] [place] [address] Care Teams Pediatric Assistant Relationship Specialty Start Date End Date Katherin Dempsey NP PCP - General 09/30/20 Katherin Dempsey NP Nurse Practitioner Family Medicine 08/31/20 Juliane Francois MD Radiation Oncologist Radiation Oncology 09/21/20 Toyin Alicea, PhD Nurse Practitioner Radiation Oncology 09/21/20 Hailey Lindquist MD [address] MEDICAL ONCOLOGY, [facility] [address] [place] [address] Medical Oncologist/Rn Imaging Medical Oncology 09/21/20 Guerita Cantor MD [address] DIV MEDICAL ONCOLOGY, [facility] [address] [place] [address] Surgeon Surgical Oncology 09/21/20
[2024-08-06 10:06] VITALS: BP 143/97; PULSE 82; RESP 16; TEMP 36.4; O2SAT 98
[2024-08-06] MEDS: LACTATED RINGERS 1,000 ML 150 ML IV CONT (10:15)
--- NOTE | 2024-08-06 10:27 | WPDANESEPPF ---
Anes - Initial Pre Proc Eval Procedure: Operation Date: 08/06/24 11:00 Proposed Procedures p Colonoscopy - Gilmar Forde MD Date/Time: 08/06/24 10:27 Surgeon: Gilmar Forde MD Pre Op Diagnosis: Personal history of colon polyps, unspecified Patient Data Age: 58 Gender: F Height: 1.57 m Weight: 78.6 kg Last Vital Signs Temp 36.4 C L 08/06/24 10:06 Pulse 82 08/06/24 10:06 Resp 16 08/06/24 10:06 BP 143/97 H 08/06/24 10:06 Pulse Ox 98 08/06/24 10:06 O2 Del Method Room Air 08/06/24 10:06 Allergies Allergy/AdvReac Type Severity Reaction Status Date / Time No Known Allergies Allergy Verified 08/06/24 10:05 Home Medications ?Medication ?Instructions ?Recorded ?Confirmed ?Type anastrozole 1 mg tablet 1 mg PO DAILY 03/15/21 08/06/24 History calcium citrate 200 mg PO DAILY 03/15/21 08/06/24 History black cohosh 200 mg capsule 200 mg PO DAILY 11/26/22 08/06/24 History clobetasol 0.05 % topical cream 1 applic topical BID PRN external 05/08/23 07/27/24 Rx vaginal irritation 2 weeks #45 grams zoledronic acid 4 mg/5 mL 1 mg IV ONCE 05/08/23 07/27/24 History intravenous solution tolterodine 4 mg capsule,extended 4 mg PO DAILY #90 caps 05/19/23 07/27/24 Rx release 24 hr Patient hx anesthesia problems: none Family hx anesthesia problems: none Results Review: All pre-operative results and documents have been reviewed as part of the pre-operative evaluation. [facility] Past Medical History Medical History Osteoporosis Patella, chondromalacia Breast cancer Urinary incontinence Uterine fibroid Shingles (~2013) left face, no ocular involvement Elevated BP without diagnosis of hypertension (vaginal after ) Vaginal delivery Bunion Surgical History Surgical History S/P foot surgery, right S/P foot surgery, left H/O partial mastectomy (~08/2020) right breast History of salpingectomy Status post hysterectomy with oophorectomy Hx of breast reduction, elective (~2004) [place] teeth removed H/O section (~1996) S/P breast lumpectomy History of tubal ligation (~1998) Family History Family History Sibling Diabetes mellitus Cervical cancer Mother Thyroid cancer Unknown Hypertension Social History Social History Social History: Caffeine-decaf coffee, diet soda Smoking status: Never smoker Alcohol intake: never Substance use: never Substance use type: does not use Lack of Transportation: No Lack of Food: Never True Current Housing: I Have Housing Concerned About Future Housing: No Difficulty Paying Gas/Electric Bills: No Difficulty Paying for Meds: No Currently Unemployed: No Education: High School Diploma/GED Difficulty w/ Childcare or Family Care: No Living arrangements: with family Gender identity (if verbalized by the patient): Female Anes - Eval Final PreProcedure Day of Procedure 08/06/24 10:27 Patient weight: obese Heart: regular rate and rhythm Lungs: clear to auscultation Airway: Mallampati scale class II Neurological: alert and oriented Last oral intake: >/= 8 hours ASA classification: III Emergent: no Anesthetic plan: proceed Anesthesia type and monitoring: general GIVS and standard monitoring Results Review: All pre-operative results and documents have been reviewed as part of the pre-operative evaluation. Informed Consent: The patient's anesthetic plan and its attendant risks and benefits were discussed with the patient/family/POA. Questions were solicited and answers provided to the satisfaction of the patient/family/POA.
--- NOTE | 2024-08-06 10:37 | PM.HPGS ---
History of Present Illness History of Present Illness Consent: Risks, benefits, and alternatives have been discussed and questions answered. Patient agrees to proceed with procedure. Chief complaint: Personal history of colon polyps, unspecified Narrative: Genna Rodriguez is a 58 year old female with colon polyp in 2019 Review of Systems Review of Systems: All systems reviewed & are unremarkable except as noted in HPI and below PMFSH Past Medical History Medical History (Updated 08/06/24 @ 10:39 by Gilmar Forde MD) Colon polyp Osteoporosis Patella, chondromalacia Breast cancer Urinary incontinence Uterine fibroid Shingles (~2013) left face, no ocular involvement Elevated BP without diagnosis of hypertension (vaginal after ) Vaginal delivery Bunion Surgical History Surgical History S/P foot surgery, right S/P foot surgery, left H/O partial mastectomy (~08/2020) right breast History of salpingectomy Status post hysterectomy with oophorectomy Hx of breast reduction, elective (~2004) [place] teeth removed H/O section (~1996) S/P breast lumpectomy History of tubal ligation (~1998) Family History Family History Sibling Diabetes mellitus Cervical cancer Mother Thyroid cancer Unknown Hypertension Social History Social History Social History: Caffeine-decaf coffee, diet soda Smoking status: Never smoker Alcohol intake: never Substance use: never Substance use type: does not use Lack of Transportation: No Lack of Food: Never True Current Housing: I Have Housing Concerned About Future Housing: No Difficulty Paying Gas/Electric Bills: No Difficulty Paying for Meds: No Currently Unemployed: No Education: High School Diploma/GED Difficulty w/ Childcare or Family Care: No Living arrangements: with family Gender identity (if verbalized by the patient): Female Meds Home Medications and Allergies Home Medications ?Medication ?Instructions ?Recorded ?Confirmed ?Type anastrozole 1 mg tablet 1 mg PO DAILY 03/15/21 08/06/24 History calcium citrate 200 mg PO DAILY 03/15/21 08/06/24 History black cohosh 200 mg capsule 200 mg PO DAILY 11/26/22 08/06/24 History clobetasol 0.05 % topical cream 1 applic topical BID PRN external 05/08/23 07/27/24 Rx vaginal irritation 2 weeks #45 grams zoledronic acid 4 mg/5 mL 1 mg IV ONCE 05/08/23 07/27/24 History intravenous solution tolterodine 4 mg capsule,extended 4 mg PO DAILY #90 caps 05/19/23 07/27/24 Rx release 24 hr Allergies Allergy/AdvReac Type Severity Reaction Status Date / Time No Known Allergies Allergy Verified 08/06/24 10:05 Vital Signs Vital Signs - 24 hr 08/06/24 10:06 Temperature 97.5 F L Pulse Rate 82 Respiratory Rate 16 Blood Pressure 143/97 H Pulse Oximetry 98 Oxygen Delivery Room Air Exam Const: General: comfortable and no acute distress HENMT: Face/Nose/Sinus: Normal nares present Eyes: General: appearance normal, both eyes and all related structures Neck: Neck: no JVD Resp: Auscultation: clear to auscultation bilaterally Cardio: Rate: regular rate Rhythm: regular rhythm GI: Inspection: non-distended GI Palp: Yes Soft to palpation Skin: General skin exam: normal color Neuro: General: gait normal Speech: normal speech Extrem: General: normal to inspection Psych: Mental Status: mental status grossly normal Assessment and Plan Assessment and plan (1) Colon polyp: Code(s): K63.5 - Polyp of colon Status: Acute Assessment and Plan: colonoscopy
[2024-08-06 10:52] VITALS: BP 147/101; PULSE 97; RESP 18; O2SAT 100
[2024-08-06 11:02] VITALS: BP 127/81; PULSE 86; RESP 21; O2SAT 98
[2024-08-06 11:12] VITALS: BP 129/89; PULSE 72; RESP 16; O2SAT 99
== END 2024-08-06 11:25 | disposition home or self-care (01) ==
PROVIDERS: PCP Family Medicine; Referring Provider Internal Medicine Gastroenterology; Visit Provider Internal Medicine Gastroenterology
PROC: 0DJD8ZZ Inspection of Lower Intestinal Tract, Via Natural or Artificial Opening Endoscopic (ICD-10-PCS; CPT 45378; principal; 2024-08-06 11:00)
DX: Z12.11 Encounter for screening for malignant neoplasm of colon (principal); K64.8 Other hemorrhoids; K57.30 Diverticulosis of large intestine without perforation or abscess without bleeding; M81.0 Age-related osteoporosis without current pathological fracture; R32 Unspecified urinary incontinence; R03.0 Elevated blood-pressure reading, without diagnosis of hypertension; E66.9 Obesity, unspecified; Z68.31 Body mass index [BMI] 31.0-31.9, adult; Z98.890 Other specified postprocedural states; Z98.51 Tubal ligation status; Z86.0100 Personal history of colon polyps, unspecified; Z85.3 Personal history of malignant neoplasm of breast; Z80.49 Family history of malignant neoplasm of other genital organs; Z80.8 Family history of malignant neoplasm of other organs or systems
CPT/HCPCS: 45378; J2704; J7120